=== PATIENT | female | born 1990 | race Hispanic/Latino ===

== ENCOUNTER 2019-07-31 15:33 | Emergency (ER) | payer OTHER, SELFPAY ==
[2019-07-31 16:49] LABS: Urine Blood 3+ (NEG); Urine Glucose NEGATIVE (NEG); Urine Protein NEGATIVE (NEG)
[2019-07-31 16:59] LABS: Urine Bacteria 20-50 /HPF (<20); Urine RBC 20-50 /HPF (NONE SEEN)
[2019-07-31 17:00] LABS: Urine Culture Reflex Order NOT NEEDED
--- NOTE | 2019-07-31 17:05 | RAD REPORT ---
EXAM DESCRIPTION: CT - Stone Protocol - 07/31/2019 4:57 pm CLINICAL HISTORY: Back pain, dysuria COMPARISON: None. TECHNIQUE: Axial 5 mm thick images were obtained without oral or IV contrast. The [id number] span s the entirety of the system including uppermost abdomen and lung bases. All CT scans are performed using dose optimization technique as appropriate and may include automated exposure control or mA/KV adjustment according to patient size. FINDINGS: No hydronephrosis is present and no obstructing ureteral calculi. No suspicious renal mass es. Isodense masses and pyelonephritis are not excluded on a stone protocol CT scan. No urinary bladd er suspicious finding. No significant adrenal finding. Uterus and ovaries show no suspicious findings . Imaged portions of the liver, spleen and pancreas show no suspicious findings on non-contrast imaging . No gallbladder or biliary tree abnormality identified. No suspicious bowel findings. No appendicitis findings. No hernia, mass or bulky lymphadenopathy noted. No free air, free fluid or inflammatory stranding. No significant bony abnormality. IMPRESSION: Negative CT stone protocol study. Isodense masses and pyelonephritis are not excluded on stone protocol technique.
[2019-07-31] MEDS ORDERED: PHENAZOPYRIDINE 100MG TAB PO ONE (17:06)
[2019-07-31] MEDS ORDERED: PROMETHAZINE 25 MG TABLET ONE (17:07)
[2019-07-31] MEDS ORDERED: HYDROCODONE/APAP 5/325 MG TAB ONE (17:07)
--- NOTE | 2019-07-31 17:30 | ER ---
Nurse's Notes [facility] Name: Tamar Arzola Age: 29 yrs Sex: Female : 1990 Arrival Date: 07/31/2019 Time: 15:37 Bed 13 Private MD: Diagnosis: Urinary tract infection, site not specified Presentation: 07/31 16:03 Presenting complaint: Patient states: "Im having pain when I pee and I can barely pee aj1 when I do go and I have to go a lot, and I'm having back pain, and now I'm feeling dizzy". Transition of care: patient was not received from another setting of care. Onset of symptoms. Onset of symptoms was July 28, 2019. Risk Assessment: Do you want to hurt yourself or someone else? Patient reports no desire to harm self or others. Initial Sepsis Screen: Does the patient meet any 2 criteria? No. Patient's initial sepsis screen is negative. Does the patient have a suspected source of infection? No. Patient's initial sepsis screen is negative. Care prior to arrival: None. 16:03 Method Of Arrival: Ambulatory aj 16:03 Acuity: JANAY 4 aj1 Triage Assessment: 16:05 General: Appears in no apparent distress. comfortable, Behavior is calm, cooperative, aj1 appropriate for age. Pain: Pain currently is 8 out of 10 on a pain scale. Neuro: Level of Consciousness is awake, alert, obeys commands. Cardiovascular: Patient's skin is warm and dry. Respiratory: Airway is patent Respiratory effort is even, unlabored, Respiratory pattern is regular, symmetrical. : Reports burning with urination, urgency, urinary frequency. Musculoskeletal: Range of motion: intact in all extremities. 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 - Social history:: Smoking status: Patient uses tobacco products, smokes one-half pack cigarettes per day. - Ebola Screening: : Patient denies travel to an Ebola-affected area in the 21 days before illness onset. Screenin:26 Abuse screen: Denies threats or abuse. Nutritional screening: No deficits noted. ph Tuberculosis screening: No symptoms or risk factors identified. Fall Risk None identified. Assessment: 17:18 General: Appears in no apparent distress. comfortable, well groomed, Behavior is calm, ph cooperative, Smells of Reports Denies . Pain: Complains of pain in bilateral flank pain Pain began 2-3 days ago. Neuro: No deficits noted. Neuro: Level of Consciousness is awake, alert, Oriented to person, place, time, situation, Speech is normal. Cardiovascular: Capillary refill < 3 seconds. Respiratory: Airway is patent. GI: Abdomen is flat. : Reports pain in bilateral flank(s), lower quadrant(s). : Reports burning with urination, pain. Derm: Skin is intact, is healthy with good turgor, Skin is pink, warm \\T\\ dry. Musculoskeletal: Range of motion: intact in all extremities. Vital Signs: 16:05 BP 145 / 98; Pulse 81; Resp 18; Temp 97.9; Pulse Ox 100% on R/A; Weight 58.97 kg (R); aj1 Height 5 ft. 2 in. (157.48 cm) (R); 18:06 BP 102 / 76; Pulse 68; Resp 18; Temp 98; Pulse Ox 100% on R/A; ph 16:05 Body Mass Index 23.78 (58.97 kg, 157.48 cm) aj ED Course: 15:37 Patient arrived in ED. mr 15:58 Lilia Gomez, [facility]DR[facility]. snw 15:58 Jonathon Gilmore MD is Attending Physician. snw 16:04 Triage completed. aj1 16:05 Arm band placed on Patient placed in an exam room. aj1 16:22 Jane Adkins, RN is Primary Nurse. ph 16:57 CT Stone Protocol In Process Unspecified. EDMS 17:26 Patient has correct armband on for positive identification. Bed in low position. Call ph light in reach. Side rails up X 1. Pulse ox on. NIBP on. Pillow given. 18:05 No provider procedures requiring assistance completed. Patient did not have IV access ph during this emergency room visit. Administered Medications: 17:18 Drug: [place] 5 mg-325 mg 1 tabs Route: PO; ph 18:11 Follow up: Response: No adverse reaction; RASS: Alert and Calm (0) ph 17:18 Drug: Phenergan 25 mg Route: PO; ph 18:11 Follow up: Response: No adverse reaction ph 17:18 Drug: Pyridium 100 mg Route: PO; ph 18:11 Follow up: Response: No adverse reaction ph 18:04 Drug: Augmentin 875 mg Route: PO; ph 18:12 Follow up: Response: No adverse reaction ph Outcome: 17:30 Discharge ordered by MD. gold 18:05 Discharged to home ambulatory, with significant other. ph 18:05 Condition: good 18:05 Discharge instructions given to patient, Instructed on discharge instructions, follow up and referral plans. medication usage, Demonstrated understanding of instructions, follow-up care, medications, Prescriptions given X 2. 18:12 Patient left the ED. ph Addendum: 08/03/2019 11:11 Addendum: Culture Results: Positive urine culture. Bacteria is resistant to, has a a5 intermediate sensitivity, or is not tested against prescribed antibiotics. Report given to JEFERSON for further evaluation and then to narcotics investigator for follow up with patient. Phone call Attempt #1 left voicemail. 11:59 Addendum: Culture Results: Prescription called-in to pharmacy of choice. to [place] [address] [facility] [place], [place], Bactrim DS called in per KILO Childress, pt also instructed to continue Augmentin per KILO. Signatures: Dispatcher [employer] EDMS Maeve Ch RN RN aj1 Lilia Gomez, [employer] CONCRETE PLANT LABORER-Lizet Hu Mariella Pinzon RN RN aa5 Jane Adkins RN RN ph
--- NOTE | 2019-07-31 17:31 | EDPHYS ---
Physician Documentation [facility] Name: Tamar Arzola Age: 29 yrs Sex: Female : 1990 Arrival Date: 07/31/2019 Time: 15:37 Bed 13 Private MD: ED Physician Jonathon Gilmore HPI: 07/31 16:17 This 29 yrs old Female presents to ER via Ambulatory with complaints of Back snw Pain, Abdominal Pain. 16:17 The patient presents with pain that is acute. The symptoms are located in the right mid snw back. Onset: The symptoms/episode began/occurred gradually. The pain does not radiate. Associated signs and symptoms: Pertinent positives: dysuria. The problem was sustained from unknown cause. Modifying factors: The patient symptoms are alleviated by nothing, the patient symptoms are aggravated by urination. Severity of symptoms: At their worst the symptoms were moderate. The patient has not experienced similar symptoms in the past. It is unknown whether or not the patient has recently seen a physician. 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 - Social history:: Smoking status: Patient uses tobacco products, smokes one-half pack cigarettes per day. - Ebola Screening: : Patient denies travel to an Ebola-affected area in the 21 days before illness onset. ROS: 16:16 Constitutional: Negative for fever, chills, and weight loss, Eyes: Negative for injury, snw pain, redness, and discharge, ENT: Negative for injury, pain, and discharge, Neck: Negative for injury, pain, and swelling, Cardiovascular: Negative for chest pain, palpitations, and edema, Respiratory: Negative for shortness of breath, cough, wheezing, and pleuritic chest pain, Abdomen/GI: Negative for abdominal pain, nausea, vomiting, diarrhea, and constipation, : Negative for injury, bleeding, discharge, and swelling, MS/Extremity: Negative for injury and deformity, Skin: Negative for injury, rash, and discoloration, Neuro: Negative for headache, weakness, numbness, tingling, and seizure, Psych: Negative for depression, anxiety, suicide ideation, homicidal ideation, and hallucinations. 16:16 Back: Positive for flank pain, on the right. Exam: 16:16 Head/Face: Normocephalic, atraumatic. Eyes: Pupils equal round and reactive to light, snw extra-ocular motions intact. Lids and lashes normal. Conjunctiva and sclera are non-icteric and not injected. Cornea within normal limits. Periorbital areas with no swelling, redness, or edema. ENT: Nares patent. No nasal discharge, no septal abnormalities noted. Tympanic membranes are normal and external auditory canals are clear. Oropharynx with no redness, swelling, or masses, exudates, or evidence of obstruction, uvula midline. Mucous membranes moist. Neck: Trachea midline, no thyromegaly or masses palpated, and no cervical lymphadenopathy. Supple, full range of motion without nuchal rigidity, or vertebral point tenderness. No Meningismus. Chest/axilla: Normal chest wall appearance and motion. Nontender with no deformity. No lesions are appreciated. Cardiovascular: Regular rate and rhythm with a normal S1 and S2. No gallops, murmurs, or rubs. Normal PMI, no JVD. No pulse deficits. Respiratory: Lungs have equal breath sounds bilaterally, clear to auscultation and percussion. No rales, rhonchi or wheezes noted. No increased work of breathing, no retractions or nasal flaring. Abdomen/GI: Soft, non-tender, with normal bowel sounds. No distension or tympany. No guarding or rebound. No evidence of tenderness throughout. Back: No spinal tenderness. Mild right costovertebral tenderness. Full range of motion. Skin: Warm, dry with normal turgor. Normal color with no rashes, no lesions, and no evidence of cellulitis. MS/ Extremity: Pulses equal, no cyanosis. Neurovascular intact. Full, normal range of motion. Neuro: Awake and alert, GCS 15, oriented to person, place, time, and situation. Cranial nerves II-XII grossly intact. Motor strength 5/5 in all extremities. Sensory grossly intact. Cerebellar exam normal. Normal gait. Psych: Awake, alert, with orientation to person, place and time. Behavior, mood, and affect are within normal limits. 16:16 Constitutional: The patient appears alert, awake, uncomfortable. Vital Signs: 16:05 BP 145 / 98; Pulse 81; Resp 18; Temp 97.9; Pulse Ox 100% on R/A; Weight 58.97 kg (R); aj1 Height 5 ft. 2 in. (157.48 cm) (R); 18:06 BP 102 / 76; Pulse 68; Resp 18; Temp 98; Pulse Ox 100% on R/A; ph 16:05 Body Mass Index 23.78 (58.97 kg, 157.48 cm) aj1 MDM: 16:08 Patient medically screened. snw 17:33 Data reviewed: vital signs, nurses notes. Data interpreted: Pulse oximetry: on room air snw is 100 %. Interpretation: normal. Counseling: I had a detailed discussion with the patient and/or guardian regarding: the historical points, exam findings, and any diagnostic results supporting the discharge/admit diagnosis, the presence of at least one elevated blood pressure reading (>120/80) during this emergency department visit, lab results, radiology results, the need for outpatient follow up, to return to the emergency department if symptoms worsen or persist or if there are any questions or concerns that arise at home. Special discussion: Based on the patient's Hx, exam, and Dx evaluation, there is no indication for emergent surgery or inpatient Tx. It is understood by the patient/guardian that if the Sx's persist or worsen they need to return immediately for re-evaluation. I have referred the patient to see his PCP for further evaluation of high blood pressure. Based on the history and exam findings, there is no indication for further emergent testing or inpatient evaluation. I discussed with the patient/guardian the need to see the OB Gyne specialist for further evaluation of the symptoms. I discussed with the patient/guardian the need to see the primary care provider for further evaluation of the symptoms. 07/31 15:58 Order name: Urine Culture snw 07/31 15:58 Order name: Urine Microscopic Only; Complete Time: 17:01 snw 07/31 16:38 Order name: CT Stone Protocol; Complete Time: 17:11 snw 07/31 16:45 Order name: Urine Dipstick--Ancillary (enter results); Complete Time: 16:52 bd 07/31 16:45 Order name: Urine --Ancillary (enter results); Complete Time: 16:52 bd 07/31 15:58 Order name: Urine Test (obtain specimen); Complete Time: 16:50 snw 07/31 15:58 Order name: Urine Dipstick-Ancillary (obtain specimen); Complete Time: 16:50 snw Administered Medications: 17:18 Drug: [place] 5 mg-325 mg 1 tabs Route: PO; ph 18:11 Follow up: Response: No adverse reaction; RASS: Alert and Calm (0) ph 17:18 Drug: Phenergan 25 mg Route: PO; ph 18:11 Follow up: Response: No adverse reaction ph 17:18 Drug: Pyridium 100 mg Route: PO; ph 18:11 Follow up: Response: No adverse reaction ph 18:04 Drug: Augmentin 875 mg Route: PO; ph 18:12 Follow up: Response: No adverse reaction ph Disposition: 08/01 07:20 Co-signature as Attending Physician, Jonathon Gilmore MD I agree with the assessment and cesar plan of care. Disposition: 07/31/19 17:30 Discharged to Home. Impression: Urinary tract infection, site not specified. - Condition is Stable. - Discharge Instructions: Back Pain, Adult, Hypertension, Urinary Tract Infection, Adult, How to Take Your Blood Pressure, [id number], Rehydration, Adult, Form - Blood Pressure Record Sheet. - Prescriptions for Augmentin 875- 125 mg Oral Tablet - take 1 tablet by ORAL route every 12 hours for 10 days; 20 tablet. Pyridium 200 mg Oral Tablet - take 1 tablet by ORAL route every 8 hours for 3 days; 9 tablet. - Medication Reconciliation Form, Thank You Letter, Antibiotic Education, Prescription Opioid Use, Work release form form. - Follow up: Private Physician; When: 2 - 3 days; Reason: Recheck today's complaints, Continuance of care, Re-evaluation by your physician. Follow up: Emergency Department; When: As needed; Reason: Worsening of condition. Signatures: Dispatcher [employer] Maeve Burns RN RN Jonathon Turk MD MD cha Therrien, Shelly, LOFT WORKER-C LOFT WORKER-Katiw Jane Adkins RN RN ph Corrections: (The following items were deleted from the chart) 07/31 18:12 17:30 07/31/2019 17:30 Discharged to Home. Impression: Urinary tract infection, site ph not specified. Condition is Stable. Forms are Medication Reconciliation Form, Thank You Letter, Antibiotic Education, Prescription Opioid Use. Follow up: Private Physician; When: 2 - 3 days; Reason: Recheck today's complaints, Continuance of care, Re-evaluation by your physician. Follow up: Emergency Department; When: As needed; Reason: Worsening of condition. snw
[2019-07-31] MEDS ORDERED: AMOX/K CLAV 875 MG TAB ONE (17:52)
[2019-07-31 18:19] VITALS: O2SAT 100
[2019-07-31 18:20] VITALS: BP 102/76; TEMP 98
== END 2019-07-31 18:12 | disposition home or self-care (01) ==
LOC: ER 15:33
DX: N39.0 Urinary tract infection, site not specified (principal); F17.210 Nicotine dependence, cigarettes, uncomplicated
CPT/HCPCS: 74176; 76377; 81003; 81015; 81025; 87077; 87086; 87088; 87186; 99284; Q0169

== ENCOUNTER 2020-03-22 06:16 | Emergency (ER) | payer SELFPAY ==
--- NOTE | 2020-03-22 06:50 | ER ---
Nurse's Notes [facility] Name: Tamar Arzola Age: 29 yrs Sex: Female : 1990 Arrival Date: 03/22/2020 Time: 06:19 Bed 11 Private MD: Diagnosis: Urticaria Presentation: 03/22 06:32 Chief complaint: Patient states: Noticed hives to general body about 0100, states lp1 taking Benadryl OTC an hour ago. Coronavirus screen: Proceed with normal triage. Ebola Screen: No symptoms or risks identified at this time. Initial Sepsis Screen: Does the patient meet any 2 criteria? No. Patient's initial sepsis screen is negative. Does the patient have a suspected source of infection? No. Patient's initial sepsis screen is negative. Risk Assessment: Do you want to hurt yourself or someone else? Patient reports no desire to harm self or others. Onset of symptoms was March 22, 2020. 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 - Social history:: Smoking status: Patient reports the use of cigarette tobacco products, smokes one-half pack cigarettes per day. Screenin:36 Abuse screen: Denies threats or abuse. Denies injuries from another. Nutritional lp1 screening: No deficits noted. Tuberculosis screening: No symptoms or risk factors identified. Fall Risk None identified. Assessment: 07:05 General: Appears in no apparent distress. Behavior is calm, cooperative, appropriate lp1 for age. Pain: Denies pain. Neuro: No deficits noted. Cardiovascular: No deficits noted. Respiratory: No deficits noted. GI: No signs and/or symptoms were reported involving the gastrointestinal system. : No signs and/or symptoms were reported regarding the genitourinary system. EENT: No signs and/or symptoms were reported regarding the EENT system. Derm: Rash noted that is raised, urticaria. Musculoskeletal: No deficits noted. Vital Signs: 06:32 BP 115 / 84; Pulse 74; Resp 18; Pulse Ox 100% on R/A; Weight 63.5 kg (R); Height 5 ft. lp1 2 in. (157.48 cm); 06:32 Body Mass Index 25.61 (63.50 kg, 157.48 cm) lp1 ED Course: 06:19 Patient arrived in ED. cl3 06:22 Jonathon Gilmore MD is Attending Physician. [facility] 06:35 Triage completed. lp1 06:35 Arm band placed on. lp1 06:37 Patient has correct armband on for positive identification. lp1 06:54 Norah Meneses, RN is Primary Nurse. lp1 07:06 No provider procedures requiring assistance completed. Patient did not have IV access lp1 during this emergency room visit. Administered Medications: 07:05 Drug: Benadryl 25 mg Route: PO; lp1 07:05 Follow up: Response: Medication administered at discharge. lp1 07:05 Drug: Pepcid 40 mg Route: PO; lp1 07:05 Follow up: Response: Medication administered at discharge. lp1 07:05 Drug: predniSONE 40 mg Route: PO; lp1 07:05 Follow up: Response: Medication administered at discharge. lp1 Outcome: 06:49 Discharge ordered by . [facility] 07:06 Discharged to home ambulatory, with significant other. lp1 07:06 Condition: good 07:06 Discharge instructions given to patient, Instructed on discharge instructions, follow up and referral plans. medication usage, Demonstrated understanding of instructions, follow-up care, medications, Prescriptions given X 3. 07:07 Patient left the ED. lp1 Signatures: Jonathon Gilmore MD MD cha Pena, Laura, RN RN lp1 Jose Cruz Lee cl3
--- NOTE | 2020-03-22 06:50 | EDPHYS ---
Physician Documentation [facility] Name: Tamar Arzola Age: 29 yrs Sex: Female : 1990 Arrival Date: 03/22/2020 Time: 06:19 Bed 11 Private MD: ED Physician Jonathon Gilmore HPI: 03/22 06:44 This 29 yrs old Female presents to ER via Ambulatory with complaints of Welps cesar On Body. 06:44 The patient presents with rash, that is diffuse. Onset: The symptoms/episode cesar began/occurred last night. Associated signs and symptoms: The patient has no apparent associated signs or symptoms. Possible causes: The patient has no known obvious cause for the symptoms, cleaning supplies. At home the patient or guardian has treated the symptoms with Benadryl. Severity of symptoms: At their worst the symptoms were mild in the emergency department the symptoms are unchanged. The patient has not experienced similar symptoms in the past. 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 - Social history:: Smoking status: Patient reports the use of cigarette tobacco products, smokes one-half pack cigarettes per day. ROS: 06:46 Constitutional: Negative for fever, chills, and weight loss, Eyes: Negative for injury, cesar pain, redness, and discharge, ENT: Negative for injury, pain, and discharge, Neck: Negative for injury, pain, and swelling, Cardiovascular: Negative for chest pain, palpitations, and edema, Respiratory: Negative for shortness of breath, cough, wheezing, and pleuritic chest pain, Abdomen/GI: Negative for abdominal pain, nausea, vomiting, diarrhea, and constipation, Back: Negative for injury and pain, : Negative for injury, bleeding, discharge, and swelling, MS/Extremity: Negative for injury and deformity, Neuro: Negative for headache, weakness, numbness, tingling, and seizure, Psych: Negative for depression, anxiety, suicide ideation, homicidal ideation, and hallucinations, Allergy/Immunology: Negative for hives, rash, and allergies, Endocrine: Negative for neck swelling, polydipsia, polyuria, polyphagia, and marked weight changes, Hematologic/Lymphatic: Negative for swollen nodes, abnormal bleeding, and unusual bruising. 06:46 Skin: Positive for rash, of the back, buttocks, chest and abdomen. Exam: 06:46 Constitutional: This is a well developed, well nourished patient who is awake, alert, cesar and in no acute distress. Head/Face: Normocephalic, atraumatic. Eyes: Pupils equal round and reactive to light, extra-ocular motions intact. Lids and lashes normal. Conjunctiva and sclera are non-icteric and not injected. Cornea within normal limits. Periorbital areas with no swelling, redness, or edema. ENT: Nares patent. No nasal discharge, no septal abnormalities noted. Tympanic membranes are normal and external auditory canals are clear. Oropharynx with no redness, swelling, or masses, exudates, or evidence of obstruction, uvula midline. Mucous membranes moist. Neck: Trachea midline, no thyromegaly or masses palpated, and no cervical lymphadenopathy. Supple, full range of motion without nuchal rigidity, or vertebral point tenderness. No Meningismus. Chest/axilla: Normal chest wall appearance and motion. Nontender with no deformity. No lesions are appreciated. Cardiovascular: Regular rate and rhythm with a normal S1 and S2. No gallops, murmurs, or rubs. Normal PMI, no JVD. No pulse deficits. Respiratory: Lungs have equal breath sounds bilaterally, clear to auscultation and percussion. No rales, rhonchi or wheezes noted. No increased work of breathing, no retractions or nasal flaring. Abdomen/GI: Soft, non-tender, with normal bowel sounds. No distension or tympany. No guarding or rebound. No evidence of tenderness throughout. Back: No spinal tenderness. No costovertebral tenderness. Full range of motion. MS/ Extremity: Pulses equal, no cyanosis. Neurovascular intact. Full, normal range of motion. Neuro: Awake and alert, GCS 15, oriented to person, place, time, and situation. Cranial nerves II-XII grossly intact. Motor strength 5/5 in all extremities. Sensory grossly intact. Cerebellar exam normal. Normal gait. Psych: Awake, alert, with orientation to person, place and time. Behavior, mood, and affect are within normal limits. 06:46 Skin: urticaria. Vital Signs: 06:32 BP 115 / 84; Pulse 74; Resp 18; Pulse Ox 100% on R/A; Weight 63.5 kg (R); Height 5 ft. lp1 2 in. (157.48 cm); 06:32 Body Mass Index 25.61 (63.50 kg, 157.48 cm) lp1 MDM: 06:32 Patient medically screened. [facility] 06:47 Data reviewed: vital signs, nurses notes. [facility] 06:47 Differential diagnosis: angioedema, urticaria. Data interpreted: quality assurance monitor: not cesar applicable for this patient encounter. rate is 74 beats/min, Pulse oximetry: on room air is 100 %. Counseling: I had a detailed discussion with the patient and/or guardian regarding: the historical points, exam findings, and any diagnostic results supporting the discharge/admit diagnosis. Administered Medications: 07:05 Drug: Benadryl 25 mg Route: PO; lp1 07:05 Follow up: Response: Medication administered at discharge. lp1 07:05 Drug: Pepcid 40 mg Route: PO; lp1 07:05 Follow up: Response: Medication administered at discharge. lp1 07:05 Drug: predniSONE 40 mg Route: PO; lp1 07:05 Follow up: Response: Medication administered at discharge. lp1 Disposition: 03/22/20 06:49 Discharged to Home. Impression: Urticaria. - Condition is Stable. - Discharge Instructions: Allergies, Adult, Hives, Hives, [id number]. - Prescriptions for Benadryl 25 mg Oral Capsule - take 1 capsule by ORAL route every 6 hours As needed; 30 tablet. Pepcid 20 mg Oral Tablet - take 1 tablet by ORAL route every 12 hours for 10 days; 20 tablet. Prednisone 20 mg Oral Tablet - take 2 tablet by ORAL route once daily for 5 days; 10 tablet. - Medication Reconciliation Form, Thank You Letter, Antibiotic Education, Prescription Opioid Use, Family Work Release form. - Follow up: Private Physician; When: 2 - 3 days; Reason: Recheck today's complaints, Continuance of care, Re-evaluation by your physician. - Problem is new. - Symptoms have improved. Signatures: Jonathon Gilmore MD MD cha Pena, Laura RN RN lp1 Corrections: (The following items were deleted from the chart) 07:07 06:49 03/22/2020 06:49 Discharged to Home. Impression: Urticaria. Condition is Stable. lp1 Forms are Medication Reconciliation Form, Thank You Letter, Antibiotic Education, Prescription Opioid Use. Follow up: Private Physician; When: 2 - 3 days; Reason: Recheck today's complaints, Continuance of care, Re-evaluation by your physician. Problem is new. Symptoms have improved. cesar
[2020-03-22] MEDS ORDERED: predniSONE 20 MG TAB ONE (07:07)
[2020-03-22] MEDS ORDERED: DIPHENHYDRAMINE 25 MG TAB/CAP ONE (07:07)
[2020-03-22 07:29] VITALS: BP 115/84; O2SAT 100
== END 2020-03-22 07:07 | disposition home or self-care (01) ==
LOC: ER 06:16
DX: L50.9 Urticaria, unspecified (principal); F17.210 Nicotine dependence, cigarettes, uncomplicated
CPT/HCPCS: 99283; J7512

== ENCOUNTER 2020-07-08 17:33 | Emergency (ER) | payer SELFPAY ==
[2020-07-08 18:49] LABS: Absolute Lymphocytes (CBC) 1.6 K/uL (0.7-4.9); Basophils % 0.6 % (0-1.3); Hematocrit 37.5 % (36.0-45.0); Lymphocytes % 28.6 % (15.3-44.8); MPV 9.1 fL (7.6-11.3); RBC Red Blood Cell Count 4.38 M/uL (3.86-4.86)
--- NOTE | 2020-07-08 18:53 | RAD REPORT ---
EXAM DESCRIPTION: RAD - Chest Single View - 07/08/2020 6:21 pm CLINICAL HISTORY: CHEST PAIN Chest pain. COMPARISON: CHEST SINGLE VIEW dated 11/29/2012 FINDINGS: Portable technique limits examination quality. The lungs are grossly clear. The heart is normal in size. No displaced fractures. IMPRESSION: No acute intrathoracic process suspected.
[2020-07-08 19:14] LABS: AST/SGOT 90 U/L (15-37); Albumin 4.1 g/dL (3.4-5.0); Alkaline Phosphatase 68 U/L (45-117); BUN Blood Urea Nitrogen 11 mg/dL (7-18); Bicarbonate 26 mmol/L (21-32); Bilirubin Direct < 0.1 mg/dL (0-0.2); Bilirubin Total 0.1 mg/dL (0.2-1.0); Glucose Level 85 mg/dL (74-106); Magnesium 2.3 mg/dL (1.8-2.4); NT PRO-BNP 17 pg/mL (<125); Potassium 3.7 mmol/L (3.5-5.1); Protein, Total 8.3 g/dL (6.4-8.2); Sodium Level 139 mmol/L (136-145); Troponin (Emerg Dept Use Only) < 0.02 ng/mL (0.0-0.045)
[2020-07-08 19:16] LABS: ALT/SGPT 300 U/L (12-78)
[2020-07-08 19:17] LABS: Protime INR 0.97
--- NOTE | 2020-07-08 20:01 | ER ---
Nurse's Notes [facility] Name: Tamar Arzola Age: 30 yrs Sex: Female : 1990 Arrival Date: 07/08/2020 Time: 17:35 Bed 24 Private MD: Diagnosis: Chest pain, unspecified;Dyspnea Presentation: 07/08 17:57 Chief complaint: Patient states: I have been having sharp pains in my lungs all over, ca1 on and off for the past 2 months. But for the past week, it has gotten worse and I have been having chest pains to around the same time. SOB with CP. Denies cough, denies fever. Denies injury. Coronavirus screen: Client denies travel out of the [place] in the last 14 days. shortness of breath, Client presents with at least one sign or symptom that may indicate coronavirus-19. Standard/surgical mask placed on the client. Provider contacted for isolation considerations. The client denies any previous COVID testing. Ebola Screen: Patient negative for fever greater than or equal to 101.5 degrees Fahrenheit, and additional compatible Ebola Virus Disease symptoms Patient denies exposure to infectious person. Patient denies travel to an Ebola-affected area in the 21 days before illness onset. No symptoms or risks identified at this time. Initial Sepsis Screen: Does the patient meet any 2 criteria? No. Patient's initial sepsis screen is negative. Does the patient have a suspected source of infection? No. Patient's initial sepsis screen is negative. Risk Assessment: Do you want to hurt yourself or someone else? Patient reports no desire to harm self or others. Onset of symptoms was July 08, 2020. 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 - Social history:: Smoking status: Patient/guardian denies using tobacco, but has a distant history of tobacco abuse. Screenin:38 Abuse screen: Denies threats or abuse. Nutritional screening: No deficits noted. jd3 Tuberculosis screening: No symptoms or risk factors identified. Fall Risk IV access (20 points). Ambulatory Aid- None/Bed Rest/Nurse Assist (0 pts). Gait- Normal/Bed Rest/Wheelchair (0 pts) Mental Status- Oriented to own ability (0 pts). Total Scherer Fall Scale indicates No Risk (0-24 pts). Assessment: 18:37 General: Appears in no apparent distress. uncomfortable, Behavior is calm, cooperative, jd3 appropriate for age. Pain: Complains of pain in chest Pain does not radiate. Quality of pain is described as aching, pressure, Pain began gradually. Neuro: Level of Consciousness is awake, alert, obeys commands, Oriented to person, place, time, situation. Cardiovascular: Reports chest pain, Capillary refill < 3 seconds Patient's skin is warm and dry. Rhythm is regular. Respiratory: Reports shortness of breath at rest Airway is patent Respiratory effort is even, unlabored, Respiratory pattern is regular, symmetrical. GI: No signs and/or symptoms were reported involving the gastrointestinal system. Patient currently denies abdominal pain, diarrhea, nausea, vomiting. : No signs and/or symptoms were reported regarding the genitourinary system. EENT: No signs and/or symptoms were reported regarding the EENT system. Derm: Skin is intact, Skin is dry, Skin is normal, Skin temperature is warm. Musculoskeletal: Circulation, motion, and sensation intact. Range of motion: intact in all extremities. 19:03 Reassessment: Patient appears in no apparent distress at this time. No changes from jd3 previously documented assessment. Patient and/or family updated on plan of care and expected duration. Pain level reassessed. Patient is alert, oriented x 3, equal unlabored respirations, skin warm/dry/pink. 20:10 Reassessment: Patient appears in no apparent distress at this time. Patient and/or [facility] family updated on plan of care and expected duration. Pain level reassessed. Patient is alert, oriented x 3, equal unlabored respirations, skin warm/dry/pink. Vital Signs: 17:57 BP 108 / 84; Pulse 103; Resp 18 S; Temp 98.2(TE); Pulse Ox 100% on R/A; Weight 68.04 kg ca1 (R); Height 5 ft. 2 in. (157.48 cm) (R); Pain 8/10; 19:02 BP 99 / 63; Pulse 85; Resp 17 S; Pulse Ox 100% on R/A; jd3 20:10 BP 103 / 68; Pulse 75; Resp 17 S; Pulse Ox 98% on R/A; jd3 17:57 Body Mass Index 27.44 (68.04 kg, 157.48 cm) ca1 ED Course: 17:35 Patient arrived in ED. as 17:39 Tess March [facility]C [facility] kb 17:39 Jonathon Gilmore MD is Attending Physician. kb 17:59 Triage completed. ca1 18:00 Arm band placed on right wrist. ca1 18:03 Luis Rodríguez, KADY is Primary Nurse. jd3 18:22 XRAY Chest (1 view) In Process Unspecified. EDMS 18:37 Inserted saline lock: 20 gauge in left antecubital area, using aseptic technique. Blood jd3 collected. Patient maintains SpO2 saturation greater than 95% on room air. 18:39 Patient has correct armband on for positive identification. Placed in gown. Bed in low jd3 position. Call light in reach. Side rails up X 1. Adult w/ patient. director digital sales on. Pulse ox on. NIBP on. 19:52 No provider procedures requiring assistance completed. jd3 20:11 IV discontinued, intact, bleeding controlled, No redness/swelling at site. Pressure jd3 dressing applied. Administered Medications: No medications were administered Outcome: 20:00 Discharge ordered by . kb 20:11 Discharged to home ambulatory, with family. jd3 20:11 Condition: stable 20:11 Discharge instructions given to patient, family, Instructed on discharge instructions, follow up and referral plans. Demonstrated understanding of instructions, follow-up care. 20:12 Patient left the ED. jd3 Signatures: Dispatcher [employer] EDCO Tess March FNP-C FNP-Fawn Funes as Luis Rodríguez, KADY RN jJayashree Childress RN RN ca1 Corrections: (The following items were deleted from the chart) 19:53 19:52 Patient admitted, IV remains in place. jd3 jd3 19:53 19:52 Reassessment: Patient appears in no apparent distress at this time. Patient jd3 and/or family updated on plan of care and expected duration. Pain level reassessed. Patient is alert, oriented x 3, equal unlabored respirations, skin warm/dry/pink. report given to Karishma HILLMAN nurse for room 218 jd3
--- NOTE | 2020-07-08 20:01 | EDPHYS ---
Physician Documentation [facility] Name: Tamar Arzola Age: 30 yrs Sex: Female : 1990 Arrival Date: 07/08/2020 Time: 17:35 Bed 24 Private MD: ED Physician Jonathon Gilmore HPI: 07/08 18:27 This 30 yrs old Female presents to ER via Ambulatory with complaints of Chest kb Pain, Shortness Of Breath. 18:27 The patient or guardian reports chest pain that is located primarily in the chest kb diffusely. The pain does not radiate. Associated signs and symptoms: Pertinent positives: shortness of breath, Pertinent negatives: abdominal pain, cough, diaphoresis, dizziness, headache, lower extremity pain, lower extremity swelling, lightheadedness, nausea, near syncope, palpitations, recent travel, syncope, vomiting. The chest pain is described as stabbing. Duration: The patient or guardian reports multiple episodes, that are intermittent, with no pattern. Modifying factors: The symptoms are alleviated by nothing. the symptoms are aggravated by nothing. Severity of pain: At its worst the pain was moderate in the emergency department the pain has improved. The patient has not experienced similar symptoms in the past. The patient has not recently seen a physician. Pt reports chest pains that started 2 months ago and have been traveling around her chest. States this week the pain has been worse and she has been having shortness of breath. 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 - Social history:: Smoking status: Patient/guardian denies using tobacco, but has a distant history of tobacco abuse. ROS: 18:24 Constitutional: Negative for fever, chills, and weight loss, Abdomen/GI: Negative for kb abdominal pain, nausea, vomiting, diarrhea, and constipation, Back: Negative for injury and pain, MS/Extremity: Negative for injury and deformity, Skin: Negative for injury, rash, and discoloration, Neuro: Negative for headache, weakness, numbness, tingling, and seizure. 18:24 Cardiovascular: Positive for chest pain, Negative for edema, orthopnea, palpitations, paroxysmal nocturnal dyspnea. 18:24 Respiratory: Positive for shortness of breath, Negative for cough, dyspnea on exertion, hemoptysis, orthopnea, pleurisy, sputum production, wheezing. Exam: 18:24 Constitutional: This is a well developed, well nourished patient who is awake, alert, kb and in no acute distress. Head/Face: Normocephalic, atraumatic. Chest/axilla: Normal chest wall appearance and motion. Nontender with no deformity. No lesions are appreciated. Cardiovascular: Regular rate and rhythm with a normal S1 and S2. No gallops, murmurs, or rubs. Normal PMI, no JVD. No pulse deficits. Respiratory: Lungs have equal breath sounds bilaterally, clear to auscultation and percussion. No rales, rhonchi or wheezes noted. No increased work of breathing, no retractions or nasal flaring. Abdomen/GI: Soft, non-tender, with normal bowel sounds. No distension or tympany. No guarding or rebound. No evidence of tenderness throughout. Skin: Warm, dry with normal turgor. Normal color with no rashes, no lesions, and no evidence of cellulitis. MS/ Extremity: Pulses equal, no cyanosis. Neurovascular intact. Full, normal range of motion. Neuro: Awake and alert, GCS 15, oriented to person, place, time, and situation. Cranial nerves II-XII grossly intact. Motor strength 5/5 in all extremities. Sensory grossly intact. Cerebellar exam normal. Normal gait. 18:24 ECG was reviewed by the Attending Physician. Vital Signs: 17:57 BP 108 / 84; Pulse 103; Resp 18 S; Temp 98.2(TE); Pulse Ox 100% on R/A; Weight 68.04 kg ca1 (R); Height 5 ft. 2 in. (157.48 cm) (R); Pain 8/10; 19:02 BP 99 / 63; Pulse 85; Resp 17 S; Pulse Ox 100% on R/A; jd3 20:10 BP 103 / 68; Pulse 75; Resp 17 S; Pulse Ox 98% on R/A; jd3 17:57 Body Mass Index 27.44 (68.04 kg, 157.48 cm) ca1 MDM: 18:02 Patient medically screened. kb 18:25 Data reviewed: vital signs, nurses notes. Data interpreted: Pulse oximetry: on room air kb is 100 %. Interpretation: normal. 19:43 Counseling: I had a detailed discussion with the patient and/or guardian regarding: the kb historical points, exam findings, and any diagnostic results supporting the discharge/admit diagnosis, lab results, radiology results, the need for outpatient follow up, a family practitioner, to return to the emergency department if symptoms worsen or persist or if there are any questions or concerns that arise at home. 19:47 ED course: Pt now reports urinary frequency and intermittent low back pain. Will obtain kb urine for testing. 07/08 18:03 Order name: Basic Metabolic Panel; Complete Time: 19:19 kb 07/08 18:03 Order name: CBC with Diff; Complete Time: 19:05 kb 07/08 18:03 Order name: LFT's; Complete Time: 19:19 kb 07/08 18:03 Order name: Magnesium; Complete Time: 19:19 kb 07/08 18:03 Order name: NT PRO-BNP; Complete Time: 19:19 kb 07/08 18:03 Order name: PT-INR; Complete Time: 19:38 kb 07/08 18:03 Order name: Troponin (emerg Dept Use Only); Complete Time: 19:19 kb 07/08 18:03 Order name: XRAY Chest (1 view); Complete Time: 18:54 kb 07/08 18:03 Order name: EKG; Complete Time: 18:04 kb 07/08 18:03 Order name: Cardiac monitoring; Complete Time: 18:40 kb 07/08 18:03 Order name: EKG - Nurse/Tech; Complete Time: 18:40 kb 07/08 18:03 Order name: D-Dimer; Complete Time: 19:38 kb 07/08 20:08 Order name: Urine Dipstick--Ancillary (enter results) ar5 07/08 20:08 Order name: Urine --Ancillary (enter results) ar5 07/08 18:03 Order name: IV Saline Lock; Complete Time: 18:40 kb 07/08 18:03 Order name: Labs collected and sent; Complete Time: 18:40 kb 07/08 18:03 Order name: O2 Per Protocol; Complete Time: 18:03 kb 07/08 18:03 Order name: O2 Sat Monitoring; Complete Time: 18:03 kb 07/08 19:47 Order name: Urine Dipstick-Ancillary (obtain specimen); Complete Time: 20:02 kb 07/08 19:47 Order name: Urine Test (obtain specimen); Complete Time: 20:02 kb EC:24 Rate is 81 beats/min. Rhythm is regular. QRS Haiku is Normal. HI interval is normal at kb 128 msec. QRS interval is normal at 108 msec. QT interval is normal at 358 msec. Administered Medications: No medications were administered Disposition: 07/09 07:36 Co-signature as Attending Physician, Jonathon Gilmore MD I agree with the assessment and cesar plan of care. Disposition: 07/08/20 20:00 Discharged to Home. Impression: Chest pain, unspecified, Dyspnea. - Condition is Stable. - Discharge Instructions: Shortness of Breath, [id number], Nonspecific Chest Pain, Dsce-[id number]. - Medication Reconciliation Form, Thank You Letter, Antibiotic Education, Prescription Opioid Use form. - Follow up: Emergency Department; When: As needed; Reason: Worsening of condition. Follow up: Private Physician; When: 2 - 3 days; Reason: Recheck today's complaints, Continuance of care, Re-evaluation by your physician. Signatures: Dispatcher [employer] Tess Ledezma, DELIVERY TECHNICIAN-C RUTHIE-Jonathon Gonzales MD MD cha Davies, Jonathon, RN RN jd3 Acob, Cheryl, RN RN ca1 Corrections: (The following items were deleted from the chart) 07/08 20:12 20:00 07/08/2020 20:00 Discharged to Home. Impression: Chest pain, unspecified; jd3 Dyspnea. Condition is Stable. Forms are Medication Reconciliation Form, Thank You Letter, Antibiotic Education, Prescription Opioid Use. Follow up: Emergency Department; When: As needed; Reason: Worsening of condition. Follow up: Private Physician; When: 2 - 3 days; Reason: Recheck today's complaints, Continuance of care, Re-evaluation by your physician. kb
[2020-07-08 21:02] VITALS: TEMP 98.2
[2020-07-08 21:08] VITALS: BP 103/68; O2SAT 98
[2020-07-08 21:21] LABS: Urine Blood NEGATIVE (NEG); Urine Glucose NEGATIVE (NEG); Urine Protein NEGATIVE (NEG); Urine Specific Gravity 1.025 (1.005-1.030); Urine pH 6.5 (5.0-7.0)
--- NOTE | 2020-07-10 07:17 | EKG ---
Test Date: 2020-07-08 Test Time: 18:22:14 Sample Card Maker: PATRIA MEASUREMENT RESULTS: Intervals: Rate: 81 MD: 128 QRSD: 108 QT: 358 QTc: 415 [place]: P: 55 MD: 128 QRS: 36 T: 39 INTERPRETIVE STATEMENTS: Normal sinus rhythm Incomplete right bundle branch block Borderline ECG Compared to ECG 02/28/2017 10:48:18 Incomplete right bundle-branch block now present Electronically Signed On 07-10-20 07:14:06 CDT by Sampson De Jesus
== END 2020-07-08 20:12 | disposition home or self-care (01) ==
LOC: ER 17:33
DX: R06.00 Dyspnea, unspecified (principal)
CPT/HCPCS: 36415; 71045; 80048; 80076; 81003; 81025; 83735; 83880; 84484; 85025; 85379; 85610; 93005; 99285

== ENCOUNTER 2023-03-04 21:03 | Emergency (ER) | payer SELFPAY ==
--- OUTSIDE RECORDS SUMMARY | 2023-03-04 21:06 | XMS REPORT | Continuity of Care Document ---
:1990 Author Organization Formerly [facility] t Address [address] [facility] [address] [place] [address] Care Team Providers Name Role Phone Pcp, Patient Does Not Have A Primary Care Physician [id number] Nannette Saab Attending Clinician G_Pappas Attending Clinician Unavailable G_Pappas Admitting Clinician Unavailable Payers Payer Name Policy Type Policy Number Effective Date Expiration Date [facility] [id number] CHOICE (MEDICAID REPLACEMENT - HMO) Problems Condition Condition Condition Status Onset Resolution Last Treating Co mments Source Name Details Category Date Date Treatment Clinician Date Disease Active Overview: Un jenny delivery delivery 7-15 Form[place] ity of delivered delivered 00:00: g of this [place] 00 note Medical might be Branch different from the original. 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) Allergies, Adverse Reactions, Alerts Allergy Allergy Status Severity Reaction(s) Onset Inactive Treating Comm ents Source Name Type Date Date Clinician NO KNOWN Drug Active Univers ALLERGIE Class [facility] [place] [facility] Social History Social Habit Start Date Stop Date Quantity Comments Source Exposure to Not sure [facility] SARS-CoV-2 (event) Medica l Branch Sex Assigned At [birth year] [facility] [place] 00:00:00 00:00:00 Medical Branch Smoking Status Start Date Stop Date Source Unknown if ever smoked [facility] Medications Ordered Filled Start Stop Current Ordering Indication Dosage Frequency Signature Comments Components Source Medication Medication Date Date Medication? Clinician (SIG) Name Name Yes 1{tbl} Take 1 Tab U nivers vitamin 7-16 by mouth ity of w/FA 00:00: daily. [place] ( 00 Medical RX OR Branch GENERIC EQUIVALENT) tablet docusate Yes 240mg Take 1 Cap Un jenny calcium 7-16 by mouth ity of (SURFAK) 00:00: once daily Andi as 240 mg 00 as needed Medical capsule for Branch Constipati on. ferrous Yes 325mg Take 1 Tab Uni vers sulfate 325 7-16 by mouth 2 it y of mg (65 mg 00:00: (two) [place] iron) 00 times Medical tablet daily. Branch norethindro Yes .35mg Take 1 Tab Univers ne 7-16 by mouth ity of (MICRONOR-2 00:00[place] 8) 0.35 mg 00 Medical tablet Branch hydrocodone Yes 1{tbl} Take 1-2 Univers -acetaminop 7-16 Tabs by ity o f hen (NORCO 00:00: mouth [place] 5) 5-325 mg 00 every 6 Medic al tablet (six) Branch hours as needed for Pain. Not to be administer ed at the same time as [place] 10 if ordered. For patients < 12 years recommend do not exceed 5 doses or 2.6 gm in 24 hours totals for all acetaminop hen containing products. For adults with normal hepatic function recommend do not exceed 4 grams in 24 hours for all acetaminop hen containing products. ibuprofen Yes 600mg Take 1 Tab U nivers (MOTRIN) 7-16 by mouth ity of 600 mg 00:00: every 6 [place] tablet 00 (six) Medical hours as Branch needed for Pain. Immunizations Ordered Filled Immunization Date Status Comments [facility] e Immunization Name Name MMR 2011-04-11 Completed [facility] 00:00:00 [facility] Vital Signs Vital Name Observation Time Observation Value Comments Source Systolic blood 2021-05-29 04:31:00 103 mm[Hg] Univer sity of pressure [facility] Diastolic blood 2021-05-29 04:31:00 79 mm[Hg] Unive rsity of [facility] Branch Heart rate 2021-05-29 04:31:00 63 /min [facility] Respiratory rate 2021-05-29 04:31:00 20 /min [facility] Oxygen saturation in 2021-05-29 04:31:00 100 /min [facility] Arterial blood by [facility] Pulse oximetry [place] Body temperature 2021-05-29 00:47:00 36.11 Cristy [facility] Body height 2021-05-29 00:47:00 157.5 cm [facility] Body weight 2021-05-29 00:47:00 65.772 kg [facility] BMI 2021-05-29 00:47:00 26.52 kg/m2 [facility] Procedures Procedure Date / Time Performed Performing Clinician Lilian e CT ABDOMEN PELVIS WO 2021-05-29 03:22:42 Nannette [facility] CONTRAST [facility] XR CHEST 1 VW 2021-05-29 03:22:06 Nannette Melchor Walker o f [facility] POCT TEST 2021-05-29 01:05:00 Jessica Gonsalez [facility] LIPASE 2021-05-29 01:03:00 Jessica Gonsalez [facility] COMP. METABOLIC PANEL 2021-05-29 01:03:00 Jessica Gonsalez [facility] ([id number]) [facility] CBC WITH DIFF 2021-05-29 01:03:00 Jessica Gonsalez [facility] URINALYSIS 2021-05-29 01:03:00 Jessica Gonsalez [facility] CONSENT/REFUSAL FOR 2021-05-29 00:39:49 [facility] AND Name [facility] TREATMENT NOTICE OF PRIVACY 2021-05-29 00:38:34 Doctor Unassigned, No Univ [facility] PRACTICES Name [facility] Encounters Start End Encounter Admission Attending Care Care Encounter Source Date/Time Date/Time Type Type Clinicians Facility Department ID 2021-05-28 2021-05-28 Emergency KENNETH Melchor [id number] [facility] 20:07:00 23:59:00 Nannette Frye [id number] i [facility] [id number] [facility] [id number] [place] [id number] Branch 2021-05-28 2021-05-28 Emergency X [facility] ERT [id number] Univers 19:41:00 19:41:00 ity of [facility] 2020-08-14 2020-08-14 Outpatient G_Pappas [facility] [id number] [place] 02:20:00 02:20:00 [facility] Results Test Description Test Time Test Comments Results Result Comments Source PAP TEST, THINPREP, IMAGED 2021-10-28 09:25:26 Test Item Value Reference Range Interpretation Comme nts SOURCE: (test code = Cervical/Endocervical 8001) SLIDES: (test code = 1 8011) LMP: (test code = 8021) 10/13/2021 SPECIMEN ADEQUACY: (test (NOTE) Sa leticia for code = 44098) evaluation. En docervical cells/transform ation zone component prese nt. INTERPRETATION: (test LSIL/EPITH. ABNORMALITY; SEE A code = 85464) BELOW --- EPITHELIAL CELL ABNORMALITY Low Grade Squamous Intrae pithelial Lesion (LSIL) --- PULP GRINDER FEEDER: (test CAPRICE Ronquillo(ASCP)IAC code = 8101) PATHOLOGIST Bear Byrd M.D. INTERPRETATION BY: (test code = 8122) LOCATION: (test code = (NOTE) [place] [address]) Clinical Pathol [place] [facility], [address] [facility] [place] [address], Phone: , CLIA: [id number] i nterpreted at [facility], [address] [address], , CLIA:[id number] CPT: (test code = 8140) (NOTE) 8817 5, 33047 UNLESS OTHERWISE INDIC ATED, COMPUTER AIDED AND CYTOTECHNOLOGIS T SCREENING PERFORMED. The Pap test is a screening consuelo t with an inherent, but l ow probability of error. Your patient should be reminded to consult you immediately if she experien zoltan any suspicious sign s or symptoms, regar dless of her Pap test re sult. An alternate repor t format containing imag es or consolidated pr ior Pap history is avai lable as applicable. CT/NG, NAAT, [id number] 18:11:52 Test Item Value Reference Range Interpretation Comments GONORRHEA, NAAT NEGATIVE NEGATIVE IMPORTA NT NOTICE: SEE (test code = [place] [address]) [email or web address] Note: Assay methodology is nucleic acid amplification b y certified prosthetist vice president m ediated amplification ( TMA) utilizing the A ptima Combo 2 Assay. CHLAMYDIA, NAAT NEGATIVE NEGATIVE IMPORTA NT NOTICE: SEE (test code = [place] [address]) [email or web address] Note: Assay methodology is nucleic acid amplification b y certified prosthetist vice president m ediated amplification ( TMA) utilizing the A ptima Combo 2 Assay. HPV HIGH RISK WITH GENOTYPE, [id number] 12:44:14 Test Item Value Reference Range Interpretation Comments HPV HIGH RISK TEST NOT PERFORMED NEGATIVE QUANTIT Y OF SPECIMEN INTERP (test INSUFFICIENT FO R code = 26972) TESTING. CHARG ES ADJUSTED APPLICABLE. UNL ESS OTHERWISE INDIC ATED, ALL TESTING PER FORMED ATCLINICAL PATH [employer], I [place]. [address] [facility] [place] [address] [facility] JULES DIRECTOR: VANDA PIPER M.D. CLIA NUMBER [id number] CAP ACCREDITATION N O. [id number] VAGINAL PATHOGENS DNA [id number] 12:36:49 Test Item Value Reference Range Interpretation Comments ELIZABETH SPECIES (test code = 32505) POSITIVE NEGATIVE A G. VAGINALIS (test code = ) POSITIVE NEGATIVE A T. VAGINALIS (test code = 12774) NEGATIVE NEGATIVE HIV 1/2 4TH GEN, RFLX [id number] 05:42:13 Test Item Value Reference Range Interpretation Comments HIV 1/2 4TH GEN, RFLX CONF (test NON-REACTIVE NON-REACTIVE code = 3514) HEPATITIS PANEL, [id number] 05:42:13 Test Item Value Reference Range Interpretation Comments HEPATITIS A IgM (test NON-REACTIVE NON-REACTIVE code = 96476) HEPATITIS B CORE IgM NON-REACTIVE NON-REACTIVE (test code = 4644) HEPATITIS B SURF AG NON-REACTIVE NON-REACTIVE (test code = 2739) HEPATITIS C ANTIBODY NON-REACTIVE NON-REACTIVE (test code = 4675) INTERPRETATION (NOTE) Hepatitis A HEPATITIS A: (test code sero logy shows no = 2552) evidence of acu te hepatitis A. INTERPRETATION (NOTE) Hepatitis B HEPATITIS B: (test code sero logy shows no = 41221) evidence of acu te hepatitis B and no indication of exposure to hepatitis B vir us in the previous tra eight months. INTERPRETATION (NOTE) Hepatitis C HEPATITIS C: (test code sero logy shows no = 92902) evidence of exposure to hepatitisC viru s at this time. I t can take up to 12 months after exposure tothe hepatitis C vir us for antibodies to become detectab le in the blood in certain patient s. [id number] 04:08:32 Test Item Value Reference Range Interpretation Comments RPR RESULT (test NON-REACTIVE NON-REACTIVE code = 3501) RPR TITER (test NOT INDIC. NOT INDIC. UNLESS OTHE RWISE code = 3500) TITER INDICATED, ALL TESTING PERFORMED [facility] NICSD PATHOLOGY LABOR [facility] [address] [place] [address] 4 LABORATORY DIRE CTOR: VANDA BENJAMIN M.D. CLIA NUMBER [id number] [place] [id number] CBC with [id number] 02:04:59 Test Item Value Reference Range Interpretation Comments WBC (test code = See_Comment [Automated message] 6690-2) The system [employer] generated this result transmitted ref erence range: 4.30 - 1 1.10 10*3/?L. The re ference range was not u sed to interpret this result as normal/abnor mal. RBC (test code = See_Comment [Automated message] 789-8) The system [employer] generated this result transmitted ref erence range: 3.93 - 5 .25 10*6/?L. The re ference range was not u sed to interpret this result as normal/abnor mal. HGB (test code = 12.2 g/dL 11.6-15.0 718-7) HCT (test code = 37.9 % 35.7-45.2 4544-3) MCV (test code = 87.1 fL 80.6-95.5 787-2) MCH (test code = 28.0 pg 25.9-32.8 785-6) MCHC (test code = 32.2 g/dL 31.6-35.1 786-4) RDW-SD (test code 41.1 fL 39.0-49.9 = 81552-5) RDW-CV (test code 13.2 % 12.0-15.5 = 788-0) PLT (test code = See_Comment [Automated message] 247-3) The system [employer] generated this result transmitted ref erence range: 166 - 35 8 10*3/?L. The re ference range was not u sed to interpret this result as normal/abnor mal. MPV (test code = 10.8 fL 9.5-12.9 14912-9) NRBC/100 WBC (test See_Comment [Automat ed message] code = 0912819348) The syste [employer] which generated this result transmitted ref erence range: 0.0 - 10 .0 /100 WBCs. The refer ence range was not u sed to interpret this result as normal/abnor mal. NRBC x10^3 (test <0.01 See_Comment [Automated message] code = 0605375895) The syste m which generated this result transmitted ref erence range: 10*3/?L. The reference range was not used to interpr et this result as normal/abnormal . GRAN MAT (NEUT) % 50.8 % (test code = 770-8) IMM GRAN % (test 0.40 % code = 9977151500) LYMPH % (test code 39.5 % = 736-9) MONO % (test code 6.8 % = 5905-5) EOS % (test code = 1.8 % 713-8) BASO % (test code 0.7 % = 706-2) GRAN MAT 4.17 10*3/uL 1.88-7.09 x10^3(ANC) (test code = 8798257050) IMM GRAN x10^3 0.03 10*3/uL 0.00-0.06 (test code = 7572784192) LYMPH x10^3 (test 3.25 10*3/uL 1.32-3.29 code = 731-0) MONO x10^3 (test 0.56 10*3/uL 0.33-0.92 code = 742-7) EOS x10^3 (test 0.15 10*3/uL 0.03-0.39 code = 711-2) BASO x10^3 (test 0.06 10*3/uL 0.01-0.07 code = 704-7) [facility] 01:38:06 Test Item Value Reference Range Interpretation Comments APPEARANCE (test code = Hazy Clear A 0933502628) COLOR (test code = Yellow Yellow 3687436954) PH (test code = 4.8-8.0 9911712239) SP GRAVITY (test code = 1.003-1.030 8390538818) GLU U QUAL (test code = Normal Normal 4104479772) BLOOD (test code = Negative Negative 1961547743) KETONES (test code = Negative Negative 0441403246) PROTEIN (test code = Negative Negative 2887-8) UROBILIN (test code = Normal Normal 5220912709) BILIRUBIN (test code = Negative Negative 8284219726) NITRITE (test code = Negative Negative 7184511591) LEUK BRAIN (test code = Negative Negative 9039980669) RBC/HPF (test code = See_Comment [Autom ated message] 2596334286) The system [employer] generated this result transmitted ref erence range: 0 - 3 HP F. The reference range was not used to int erpret this result as normal/abnormal . WBC/HPF (test code = See_Comment [Autom ated message] 5419942992) The system [employer] generated this result transmitted ref erence range: 0 - 5 HP F. The reference range was not used to int erpret this result as normal/abnormal . BACTERIA (test code = Few Negative A 0146886471) AMORPHOUS (test code = Rare Rare HPF 5539731974) SQ EPITH (test code = HPF 7259175785) Lab Interpretation (test Abnormal code = 35777-5) [facility] Metabolic [id number] 01:23:09 Test Item Value Reference Range Interpretation Comments NA (test code = 137 mmol/L 135-145 9599258237) K (test code = 3.9 mmol/L 3.5-5.0 8671214107) CL (test code = 102 mmol/L 98-108 8699120535) CO2 TOTAL (test code = 24 mmol/L 23-31 4859920014) AGAP (test code = 2-16 7026399023) BUN (test code = 13 mg/dL 7-23 6465568781) GLUCOSE (test code = 89 mg/dL 70-110 7123483538) CREATININE (test code = 0.52 mg/dL 0.50-1.04 1843818181) TOTAL BILI (test code = 0.5 mg/dL 0.1-1.8 5877048216) CALCIUM (test code = 10.0 mg/dL 8.6-10.6 7144159003) T PROTEIN (test code = 8.5 g/dL 6.3-8.2 H 1744690410) ALBUMIN (test code = 4.9 g/dL 3.5-5.0 0467634348) ALK PHOS (test code = 59 U/L 34-122 3080726870) ALTv (test code = 11 U/L 5-35 1742-6) AST(SGOT) (test code = 18 U/L 13-40 8839246987) eGFR (test code = mL/min/1.73m2 5494206046) CRYSTAL (test code = CRYSTAL) Association of Glomerular Filtration Rate (GFR) and Staging of Kidney Disease* + --+ --+ ------+| GFR (mL/min/1.73 m2) ?| With Kidney Damage ?| ?Without Kidney Damage+ --------+ --------+ +| ?>90 ?| ?Stage one ?| ? Normal ?+ ---+ ---+ -------+| ?60-89 ?| ?Stage two ?| ? Decreased GFR ? + --+ --+ ------+| ?30-59 ?| ?Stage three ?| ? Stage three ? + --+ --+ ------+| ?15-29 ?| ?Stage four ? | ? Stage four ?+ ---+ ---+ -------+| ?<15 (or dialysis) ? ?| ?Stage five ? | ? Stage five ?+ ---+ ---+ -------+ *Each stage assumes the associated GFR level has been in effect for at least three months. ?Stages 1 to 5, with or without kidney disease, indicate chronic kidney disease. Notes: Determination of stages one and two (with eGFR >59mL/min/1.73 m2) requires estimation of kidney damage for at least three months as defined by structural or functional abnormalities of the kidney, manifested by either:Pathological abnormalities or Markers of kidney damage (including abnormalities in the composition of the blood or urine or abnormalities in imaging tests). Lab Interpretation Abnormal (test code = 15382-5) [facility] HospitalLip[facility], [id number] 01:22:48 Test Item Value Reference Range Interpretation Comments LIPASE (test code = 3276843486) 73 U/L 0-220 Lab Interpretation (test code = Normal 50730-2) [facility] [id number] 01:05:00 Test Item Value Reference Range Interpretation Comments POCT PREG (test code = 1605) negative On board controls acceptable with present C Line (test code = 3574) POCT PREG LOT # (test code = 3575) [id number] POCT PREG TEST DATE (test 09/26/2022 code = 3576) Lab Interpretation (test code = Normal 25818-5) [facility]"
--- NOTE | 2023-03-04 22:24 | RAD REPORT ---
EXAM DESCRIPTION: CT - Head Brain Wo Cont - 03/04/2023 10:18 pm CLINICAL HISTORY: HEADACHE Headache, drowsiness COMPARISON: Head Brain Wo Cont dated 02/28/2017 TECHNIQUE: All CT scans are performed using dose optimization technique as appropriate and may inclu de automated exposure control or mA/KV adjustment according to patient size. FINDINGS: No intracranial hemorrhage, hydrocephalus or extra-axial fluid collection.No areas of brai n edema or evidence of midline shift. The paranasal sinuses and mastoids are clear. The calvarium is intact. IMPRESSION: No acute intracranial abnormality.
[2023-03-04] MEDS ORDERED: ONDANSETRON 4 MG (ODT) TAB ONE (23:09)
[2023-03-04] MEDS ORDERED: ACETAMINOPHEN 325 MG TABLET ONE (23:09)
[2023-03-05 00:32] LABS: Specific Gravity 1.005 (1.005-1.030); Urine Bacteria <20 /HPF (<20); Urine Bilirubin NEGATIVE (Negative); Urine Blood Negative (Negative); Urine Clarity Turbid (Clear); Urine Color Colorless (Yellow); Urine Glucose NEGATIVE (Negative); Urine Protein NEGATIVE (Negative); Urine RBC None Seen /HPF (None Seen); Urine Urobilinogen Normal (Normal)
[2023-03-05 00:45] LABS: Absolute Lymphocytes (CBC) 1.9 K/uL (0.7-4.9); Hematocrit 39.2 % (36.0-45.0); Lymphocytes % 27.4 % (15.3-44.8); MCV 87.2 fL (80-100)
[2023-03-05 00:52] LABS: Potassium 3.3 mEq/L (3.5-5.1)
[2023-03-05] MEDS ORDERED: METOCLOPRAMIDE 10 MG/2mL INJ ONE (01:05)
[2023-03-05] MEDS ORDERED: dexAMETHasone 10 MG/ML VIAL ONE (01:05)
[2023-03-05] MEDS ORDERED: DIPHENHYDRAMINE 50 MG/ML VIAL ONE (01:05)
[2023-03-05] MEDS ORDERED: NA CHLORIDE 0.9% 1,000 ML ONE (01:06)
[2023-03-05] MEDS ORDERED: KETOROLAC 30 MG/ML INJ ONE (01:06)
--- NOTE | 2023-03-05 01:35 | EDPHYS ---
Physician Documentation [facility] Name: Tamar Arzola Age: 32 yrs Sex: Female : 1990 Arrival Date: 03/04/2023 Time: 21:03 Bed 7 Private MD: ED Physician Isis Beasley HPI: 03/04 22:00 This 32 yrs old Female presents to ER via Ambulatory with complaints of cp Headache, Nausea/Vomiting. 22:00 The patient complains of pain to the top of head and forehead. The patient describes cp the headache as aching. 22:00 Onset: The symptoms/episode began/occurred 2 week(s) ago. Associated signs and cp symptoms: Pertinent positives: nausea, Photophobia sinus tenderness, vomiting, sore throat, Pertinent negatives: altered mental status, fever, neck stiffness, vision loss. Severity of symptoms: in the emergency department the pain is unchanged, despite home interventions. Headache History: Other lasted longer than previous. Historical: - Allergies: 21:37 No Known Allergies; pf1 - PMHx: 21:37 None; pf1 - PSHx: 21:37 section; pf1 - Immunization history:: Adult Immunizations up to date. - Social history:: Smoking status: Patient denies any tobacco usage or history of. ROS: 22:05 Constitutional: Negative for body aches, chills, fever, poor PO intake. cp 22:05 Eyes: Negative for injury, pain, redness, and discharge. cp 22:05 ENT: Positive for sinus pain, sore throat, Negative for drainage from ear(s), ear pain, difficulty swallowing, difficulty handling secretions. 22:05 Neck: Negative for pain with movement, pain at rest, stiffness. 22:05 Cardiovascular: Negative for chest pain, edema, palpitations. 22:05 Respiratory: Negative for cough, shortness of breath, wheezing. 22:05 Abdomen/GI: Positive for nausea and vomiting, Negative for abdominal pain, diarrhea, constipation. 22:05 Back: Negative for pain at rest, pain with movement. 22:05 Neuro: Positive for headache, Negative for altered mental status, dizziness, numbness, syncope, weakness. 22:05 All other systems are negative. Exam: 22:10 Constitutional: The patient appears in no acute distress, alert, awake, non-toxic, well cp developed, well nourished, uncomfortable. 22:10 Head/Face: Normocephalic, atraumatic. cp 22:10 Eyes: Periorbital structures: appear normal, Pupils: equal, round, and reactive to light and accomodation, Extraocular movements: intact throughout, Conjunctiva: normal, no exudate, no injection, Sclera: no appreciated abnormality, Lids and lashes: appear normal, bilaterally. 22:10 ENT: External ear(s): are unremarkable, Ear canal(s): are normal, clear, TM's: dullness, bilaterally, Nose: is normal, Mouth: Lips: moist, Oral mucosa: pink and intact, moist, Posterior pharynx: is normal, airway is patent, no erythema, no exudate. 22:10 Neck: ROM/movement: is normal, is supple, without pain, no range of motions limitations, no meningismus, no nuchal rigidity, Lymph nodes: no appreciated lymphadenopathy. 22:10 Chest/axilla: Inspection: normal. 22:10 Cardiovascular: Rate: normal, Rhythm: regular. 22:10 Respiratory: the patient does not display signs of respiratory distress, Respirations: normal, no use of accessory muscles, no retractions, labored breathing, is not present, Breath sounds: are clear throughout, no decreased breath sounds, no stridor, no wheezing. 22:10 Abdomen/GI: Inspection: abdomen appears normal, Palpation: abdomen is soft and non-tender, in all quadrants. 22:10 Back: pain, is absent, ROM is normal. 22:10 Neuro: Orientation: to person, place \T\ time. Mentation: is normal, Cerebellar function: is grossly normal, Motor: moves all fours, strength is normal, Sensation: is normal, Gait: is steady, at a normal pace, without difficulty. Vital Signs: 21:31 BP 105 / 87; Pulse 80; Resp 18; Temp 98.4; Pulse Ox 100% on R/A; Weight 65.77 kg; pf1 Height 5 ft. 2 in. ; Pain 10/10; 23:17 BP 117 / 86; Pulse 80; Resp 16; Temp 98.1; Pulse Ox 98% on R/A; Pain 4/10; sg5 06/09 01:00 BP 108 / 78; Pulse 71; Resp 18; Pulse Ox 98% on R/A; Pain 9/10; pf1 01:56 BP 103 / 77; Pulse 89; Resp 16; Pulse Ox 100% on R/A; kd3 03/04 21:31 Body Mass Index 26.52 (65.77 kg, 157.48 cm) pf1 03/04 21:31 Pain Scale: Adult pf1 23:17 Pain Scale: Adult sg5 03/05 01:00 Pain Scale: Adult pf1 MDM: 03/04 21:42 Patient medically screened. 03/05 01:33 Data reviewed: vital signs, nurses notes, lab test result(s), radiologic studies, CT cp scan. 01:33 Differential diagnosis: intracerebral hemorrhage, meningitis, meningoencephalitis, cp migraine, neoplasm, otitis, sinusitis, tension headache. I considered the following discharge prescriptions or medication management in the emergency department Medications were administered in the Emergency Department. See MAR. Counseling: I had a detailed discussion with the patient and/or guardian regarding: the historical points, exam findings, and any diagnostic results supporting the discharge/admit diagnosis, lab results, radiology results, the need for outpatient follow up, a family practitioner, a neurologist, to return to the emergency department if symptoms worsen or persist or if there are any questions or concerns that arise at home. Response to treatment: the patient's symptoms have markedly improved after treatment, and as a result, I will discharge patient. 03/04 21:42 Order name: Urinalysis W/Microscopic; Complete Time: 01:19 cp 03/04 21:42 Order name: PREGU; Complete Time: 01:19 cp 03/05 00:06 Order name: CBC with Diff; Complete Time: 01:19 cp 03/05 00:06 Order name: BMP; Complete Time: 01:19 cp 03/05 01:19 Interpretation: Normal except: NA 135; K 3.3; CRE 0.48. 03/04 21:42 Order name: CT Head Brain wo Cont; Complete Time: 22:46 cp 03/04 22:46 Interpretation: Report reviewed. 03/05 00:06 Order name: IV; Complete Time: 01:41 cp Administered Medications: 03/04 23:04 Drug: Ondansetron PO 4 mg Route: PO; sg5 03/05 00:00 Follow up: Response: No adverse reaction; Marked relief of symptoms; Nausea is decreasedpf1 03/04 23:04 Drug: Acetaminophen PO 650 mg Route: PO; sg5 03/05 00:00 Follow up: Response: No adverse reaction; No change in condition; Pain is unchanged, pf1 physician notified 01:05 Drug: NS 0.9% IV 1000 ml Route: IV; Rate: 1 bolus; Site: right antecubital; pf1 01:58 Follow up: IV Status: Completed infusion; IV Intake: 1000ml kd3 01:05 Drug: metoCLOPramide IVP 10 mg Route: IVP; Site: right antecubital; pf1 01:55 Follow up: Response: No adverse reaction kd3 01:05 Drug: diphenhydrAMINE IVP 25 mg Route: IVP; Site: right antecubital; pf1 01:56 Follow up: Response: No adverse reaction kd3 01:05 Drug: Ketorolac IVP 15 mg Route: IVP; Site: right antecubital; pf1 01:56 Follow up: Response: No adverse reaction; Pain is decreased kd3 01:05 Drug: Decadron - Dexamethasone IVP 10 mg Route: IVP; Site: right antecubital; pf1 01:56 Follow up: Response: No adverse reaction; Pain is decreased kd3 01:55 Drug: Potassium PO Effervescent Tablet 50 mEq Route: PO; kd3 01:56 Follow up: Response: No adverse reaction kd3 Disposition Summary: 03/05/23 01:34 Discharge Ordered Location: Home cp Problem: new cp Symptoms: have improved cp Condition: Stable cp Diagnosis - Headache cp - Acute pharyngitis, unspecified cp Followup: cp - With: Augustine Posey MD - When: 2 - 3 days - Reason: headache Discharge Instructions: - Discharge Summary Sheet cp - Migraine Headache cp - Pharyngitis cp - Sore Throat cp Forms: - Medication Reconciliation Form cp - Thank You Letter cp - Antibiotic Education cp - Prescription Opioid Use cp Prescriptions: - Fioricet 50-300-40 mg Oral capsule - take 1 capsule by ORAL route 4 times per day as needed for pain; 20 capsule; cp Refills: 0, Product Selection Permitted - Amoxicillin 875 mg Oral Tablet - take 1 tablet by ORAL route every 12 hours for 10 days; 20 tablet; Refills: 0, cp Product Selection Permitted - Ibuprofen 800 mg Oral Tablet - take 1 tablet by ORAL route every 8 hours As needed take with food; 30 tablet; cp Refills: 0, Product Selection Permitted - Zofran 4 mg Oral Tablet - take 1 tablet by ORAL route every 12 hours As needed; 20 tablet; Refills: 0, cp Product Selection Permitted Signatures: Dispatcher [employer] EDMS Jonathon Godinez PA PA cp Doucette, Kyli RN RN kd3 Rachael Cabrera RN RN pf1 Marsha Zhou RN RN sg5
--- NOTE | 2023-03-05 01:35 | ER ---
Nurse's Notes [facility] Name: Tamar Arzola Age: 32 yrs Sex: Female : 1990 Arrival Date: 03/04/2023 Time: 21:03 Bed 7 Private MD: Diagnosis: Headache;Acute pharyngitis, unspecified Presentation: 03/04 21:31 Chief complaint: Patient states: headache for 2 weeks with sinus pressure, worse in the pf1 past 2 days with vomiting x 10 episodes today. Patient stated had a sore throat with onset of symptoms, but not resolved. Patient stated took ibuprofen 800mg at 0800 this AM. Coronavirus screen: Vaccine status: Patient reports being unvaccinated. Client denies travel out of the [place] in the last 14 days. Client presents with at least one sign or symptom that may indicate coronavirus-19. Ebola Screen: Patient negative for fever greater than or equal to 101.5 degrees Fahrenheit, and additional compatible Ebola Virus Disease symptoms. Initial Sepsis Screen: Does the patient meet any 2 criteria? No. Patient's initial sepsis screen is negative. Does the patient have a suspected source of infection? No. Patient's initial sepsis screen is negative. Risk Assessment: Do you want to hurt yourself or someone else? Patient reports no desire to harm self or others. 21:31 Method Of Arrival: Ambulatory 1 21:31 Acuity: JANAY 3 pf1 03/05 01:57 Onset of symptoms was March 05, 2023. kd3 Triage Assessment: 01:57 Headache History: Denies prior headaches. General: Appears uncomfortable. Pain: Pain at 3 worst was 8 out of 10 on a pain scale. Pain began gradually, Also complains of nausea. Historical: - Allergies: 03/04 21:37 No Known Allergies; pf1 - PMHx: 21:37 None; pf1 - PSHx: 21:37 section; pf1 - Immunization history:: Adult Immunizations up to date. - Social history:: Smoking status: Patient denies any tobacco usage or history of. Screenin:17 [facility] ED Fall Risk Assessment (Adult) History of falling in the last 3 months, sg5 including since admission No falls in past 3 months (0 pts). Abuse screen: Denies threats or abuse. Nutritional screening: No deficits noted. Tuberculosis screening: No symptoms or risk factors identified. Assessment: 23:17 General: Appears in no apparent distress. comfortable, Behavior is calm, cooperative, sg5 appropriate for age. Pain: Complains of pain in head and throat. Neuro: Level of Consciousness is awake, alert, obeys commands, Oriented to person, place, time, situation, Appropriate for age. Cardiovascular: Capillary refill < 3 seconds Patient's skin is warm and dry. Respiratory: Airway is patent Trachea midline Respiratory effort is even, unlabored, Respiratory pattern is regular, symmetrical. GI: Abdomen is flat, non-distended, Reports nausea. : No signs and/or symptoms were reported regarding the genitourinary system. EENT: Reports nasal congestion pain. EENT: Reports. Derm: No signs and/or symptoms reported regarding the dermatologic system. Musculoskeletal: No signs and/or symptoms reported regarding the musculoskeletal system. 03/05 00:00 Reassessment: Patient appears in no apparent distress at this time. No changes from pf1 previously documented assessment. Patient and/or family updated on plan of care and expected duration. Pain level reassessed. Patient is alert, oriented x 3, equal unlabored respirations, skin warm/dry/pink. Patient states symptoms have not improved. 01:00 Reassessment: Patient appears in no apparent distress at this time. No changes from pf1 previously documented assessment. Patient and/or family updated on plan of care and expected duration. Pain level reassessed. Patient is alert, oriented x 3, equal unlabored respirations, skin warm/dry/pink. Patient states symptoms have not improved. Vital Signs: 03/04 21:31 BP 105 / 87; Pulse 80; Resp 18; Temp 98.4; Pulse Ox 100% on R/A; Weight 65.77 kg; pf1 Height 5 ft. 2 in. ; Pain 10/10; 23:17 BP 117 / 86; Pulse 80; Resp 16; Temp 98.1; Pulse Ox 98% on R/A; Pain 4/10; sg5 03/05 01:00 BP 108 / 78; Pulse 71; Resp 18; Pulse Ox 98% on R/A; Pain 9/10; pf1 01:56 BP 103 / 77; Pulse 89; Resp 16; Pulse Ox 100% on R/A; kd3 03/04 21:31 Body Mass Index 26.52 (65.77 kg, 157.48 cm) pf1 03/04 21:31 Pain Scale: Adult pf1 23:17 Pain Scale: Adult sg5 03/05 01:00 Pain Scale: Adult pf1 ED Course: 03/04 21:06 Patient arrived in ED. kj1 21:37 Triage completed. pf1 21:41 Jonathon Godinez PA is PHCP. cp 21:41 Isis Beasley MD is Attending Physician. cp 22:20 CT Head Brain wo Cont In Process Unspecified. EDMS 23:17 Patient has correct armband on for positive identification. Bed in low position. Call sg5 light in reach. Side rails up X 1. Valuables Left with patient. 03/05 00:24 Inserted saline lock: 20 gauge in right antecubital area, using aseptic technique. sg5 Blood collected. 01:34 Augustine Posey MD is Referral Physician. cp 01:44 Emily Black, KADY is Primary Nurse. kd3 01:57 Arm band placed on right wrist. kd3 01:57 No provider procedures requiring assistance completed. IV discontinued, intact, kd3 bleeding controlled, No redness/swelling at site. Pressure dressing applied. Administered Medications: 03/04 23:04 Drug: Ondansetron PO 4 mg Route: PO; sg5 03/05 00:00 Follow up: Response: No adverse reaction; Marked relief of symptoms; Nausea is decreasedpf1 03/04 23:04 Drug: Acetaminophen PO 650 mg Route: PO; sg5 03/05 00:00 Follow up: Response: No adverse reaction; No change in condition; Pain is unchanged, pf1 physician notified 01:05 Drug: NS 0.9% IV 1000 ml Route: IV; Rate: 1 bolus; Site: right antecubital; pf1 01:58 Follow up: IV Status: Completed infusion; IV Intake: 1000ml kd3 01:05 Drug: metoCLOPramide IVP 10 mg Route: IVP; Site: right antecubital; pf1 01:55 Follow up: Response: No adverse reaction kd3 01:05 Drug: diphenhydrAMINE IVP 25 mg Route: IVP; Site: right antecubital; pf1 01:56 Follow up: Response: No adverse reaction kd3 01:05 Drug: Ketorolac IVP 15 mg Route: IVP; Site: right antecubital; pf1 01:56 Follow up: Response: No adverse reaction; Pain is decreased kd3 01:05 Drug: Decadron - Dexamethasone IVP 10 mg Route: IVP; Site: right antecubital; pf1 01:56 Follow up: Response: No adverse reaction; Pain is decreased kd3 01:55 Drug: Potassium PO Effervescent Tablet 50 mEq Route: PO; kd3 01:56 Follow up: Response: No adverse reaction kd3 Medication: 01:57 VIS not applicable for this client. kd3 Intake: 01:58 IV: 1000ml; Total: 1000ml. kd3 Outcome: 01:34 Discharge ordered by MD. cp 01:57 Discharged to home ambulatory. kd3 01:57 Condition: stable 01:57 Discharge instructions given to patient, Instructed on discharge instructions, follow up and referral plans. medication usage, Demonstrated understanding of instructions, follow-up care, medications, Prescriptions given X 4. 02:01 Patient left the ED. kd3 Signatures: Dispatcher [employer] EDMS Jonathon Godinez PA PA cp Jackson, Kandis kj1 Emily Black RN RN kd3 Rachael Cabrera RN RN pf1 Marsha Zhou RN RN sg5
[2023-03-05] MEDS ORDERED: POTASSIUM 25 MEQ EFFERV TAB ONE (01:51)
[2023-03-05 02:06] VITALS: TEMP 98.1
[2023-03-05 02:09] VITALS: BP 103/77; O2SAT 100
== END 2023-03-05 02:01 | disposition home or self-care (01) ==
LOC: ER 21:03
DX: R51.9 Headache, unspecified (principal); J02.9 Acute pharyngitis, unspecified
CPT/HCPCS: 36415; 70450; 80048; 81001; 81025; 85025; 96361; 96374; 96375; 99284; J1100; J1200; J2765; J7030; Q0162

== ENCOUNTER 2024-12-11 05:43 | Emergency (ER) | payer OTHER, SELFPAY ==
--- OUTSIDE RECORDS SUMMARY | 2024-12-11 05:47 | XMS REPORT | Continuity of Care Document ---
Author Name Unknown Address [address] [facility] [address] [place] [address] Organization [employer] [place] Address [address] [facility] 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 Phone Pcp, Patient Does Not Have A Primary Care Physic michele EMY LUCIANO Attending Clinician Unavailable HARI FRIAS Attending Clinician Unavailabl e G_Pappas Attending Clinician Unavailable AMINA MATOS Attending Clinician Unavailabl Nannette Meza Attending Clinician [phone] HARI FRIAS Admitting Clinician Unavailesmer e G_Pappas Admitting Clinician Unavailable Payers Payer Name Policy Type Policy Number Effective Date Expirati on Date Source [facility] (MEDICAID HMO) [id number] 2016 00:00:00 [facility] (MEDICAID REPLACEMENT - HMO) [id number] Problems Condition Name Condition Details Condition Category Status Onset Date Resolution Date Last Treatment Date Treating Clinician Comments Source Large for gestation age fetus Large for Gestation Age Fetus Problem Active 02-01 00:00: 00 [facility] 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 ICD10 Diagnosis Term [employer] [facility] Papanicola ou smear of cervix with low grade squamous intraepith elial lesion (LGSIL) Papanicola ou smear of cervix with low grade squamous intraepith elial lesion (LGSIL) Disease Active 8-17 00:00: 00 [facility] Allergies, Adverse Reactions, Alerts Allergy Name Allergy Type Status Severity Reaction(s) Onset Date Inactive Date Treating Clinician Comments Source NO KNOWN ALLERGIE S Drug Class Active [facility] Social History Social Habit Start Date Stop Date Quantity Comments Source Exposure to SARS-CoV-2 (event) Not sure [facility] Sex Assigned At 1990 00:00:00 1990 00:00:00 [facility] Smoking Status Start Date Stop Date Source Former Smoker [facility] Unknown if ever smoked [facility] Medications Ordered Medication Name Filled Medication Name Start Date Stop Date Current Medication? Ordering Clinician Indication Dosage Frequency Signature (SIG) Comments Components Source ceftriaxone 1 gram solution for injection Take 1 g by injection route. ceftriaxone 1 gram solution for injection Take 1 g by injection route. 02-28 16:36: 16 No 1g ceftriaxon e 1 gram solution for injection Take 1 g by injection route. [facility] vitamin w/FA ( RX OR GENERIC EQUIVALENT) tablet 04-11 00:00: 00 Yes 1{tbl} Take 1 Tab by mouth daily. [facility] docusate calcium (SURFAK) 240 mg capsule 04-11 00:00: 00 Yes 240mg Take 1 Cap by mouth once daily as needed for Constipati on. [facility] ferrous sulfate 325 mg (65 mg iron) tablet 04-11 00:00: 00 Yes 325mg Take 1 Tab by mouth 2 (two) times daily. [facility] norethindro ne (MICRONOR-2 8) 0.35 mg tablet 04-11 00:00: 00 Yes .35mg Take 1 Tab by mouth daily. [facility] ibuprofen (MOTRIN) 600 mg tablet 04-11 00:00: 00 Yes 600mg Take 1 Tab by mouth every 6 (six) hours as needed for Pain. [facility] ferrous gluconate 324 mg (38 mg iron) tablet TAKE 1 TABLET BY MOUTH ONCE DAILY ferrous gluconate 324 mg (38 mg iron) tablet TAKE 1 TABLET BY MOUTH ONCE DAILY No ferrous gluconate 324 mg (38 mg iron) tablet TAKE 1 TABLET BY MOUTH ONCE DAILY [facility] Vitafol-One 29 mg iron-1 mg-200 mg capsule Take 1 capsule(s) by mouth at bedtime every night. Vitafol-One 29 mg iron-1 mg-200 mg capsule Take 1 capsule(s) by mouth at bedtime every night. No Vitafol-On e 29 mg iron-1 mg-200 mg capsule Take 1 capsule(s) by mouth at bedtime every night. [facility] metoclopram collin 10 mg tablet TAKE 1 TABLET BY MOUTH EVERY 6 HOURS NEEDED FOR NAUSEA metoclopram collin 10 mg tablet TAKE 1 TABLET BY MOUTH EVERY 6 HOURS NEEDED FOR NAUSEA No metoclopra mide 10 mg tablet TAKE 1 TABLET BY MOUTH EVERY 6 HOURS NEEDED FOR NAUSEA [facility] acetaminoph en 300 mg-codeine 30 mg tablet TAKE 1 TO 2 TABLETS BY MOUTH EVERY 6 HOURS NEEDED FOR PAIN acetaminoph en 300 mg-codeine 30 mg tablet TAKE 1 TO 2 TABLETS BY MOUTH EVERY 6 HOURS NEEDED FOR PAIN No acetaminop hen 300 mg-codeine 30 mg tablet TAKE 1 TO 2 TABLETS BY MOUTH EVERY 6 HOURS NEEDED FOR PAIN [facility] amoxicillin 875 mg-potassiu m clavulanate 125 mg tablet Take 1 tablet twice a day by oral route for 7 days. amoxicillin 875 mg-potassiu m clavulanate 125 mg tablet Take 1 tablet twice a day by oral route for 7 days. No 1 BID amoxicilli n 875 mg-potassi um clavulanat e 125 mg tablet Take 1 tablet twice a day by oral route for 7 days. [facility] Bactrim DS 800 mg-160 mg tablet Take 1 tablet twice a day by oral route for 7 days. Bactrim DS 800 mg-160 mg tablet Take 1 tablet twice a day by oral route for 7 days. No 1 BID Bactrim DS 800 mg-160 mg tablet Take 1 tablet twice a day by oral route for 7 days. [facility] fluconazole 100 mg tablet Take 1 tablet every other day by oral route for 6 days. fluconazole 100 mg tablet Take 1 tablet every other day by oral route for 6 days. No 1 Q2D fluconazol e 100 mg tablet Take 1 tablet every other day by oral route for 6 days. [facility] ibuprofen 800 mg tablet TAKE 1 TABLET BY MOUTH EVERY 6 HOURS NEEDED FOR PAIN ibuprofen 800 mg tablet TAKE 1 TABLET BY MOUTH EVERY 6 HOURS NEEDED FOR PAIN No ibuprofen 800 mg tablet TAKE 1 TABLET BY MOUTH EVERY 6 HOURS NEEDED FOR PAIN [facility] hydrocodone 5 mg-acetamin ophen 325 mg tablet take 1-2 tabs p.o. q 6 hours PRN pain hydrocodone 5 mg-acetamin ophen 325 mg tablet take 1-2 tabs p.o. q 6 hours PRN pain No hydrocodon e 5 mg-acetami nophen 325 mg tablet take 1-2 tabs p.o. q 6 hours PRN pain [facility] Vital Signs Vital Name Observation Time Observation Value Comments S ource BP Diastolic 2024-03-03 00:00:00 77 mm[Hg] [facility] Body Weight 2024-03-03 00:00:00 153 [lb_av] [facility] BP Systolic 2024-03-03 00:00:00 113 mm[Hg] [facility] Height 2024-03-03 00:00:00 62 [in_i] [facility] BMI (Body Mass Index) 2024-03-03 00:00:00 28 kg/m2 [facility] BP Systolic 2024-02-29 00:00:00 125 mm[Hg] [facility] Body Weight 2024-02-29 00:00:00 162.5 [lb_av] [facility] Height 2024-02-29 00:00:00 62 [in_i] [facility] BP Diastolic 2024-02-29 00:00:00 86 mm[Hg] [facility] BMI (Body Mass Index) 2024-02-29 00:00:00 29.7 kg/m2 [facility] Height 2024-02-15 00:00:00 62 [in_i] [facility] Body Weight 2024-02-15 00:00:00 170.2 [lb_av] [facility] BP Systolic 2024-02-15 00:00:00 109 mm[Hg] [facility] BMI (Body Mass Index) 2024-02-15 00:00:00 31.1 kg/m2 [facility] BP Diastolic 2024-02-15 00:00:00 78 mm[Hg] [facility] Body Weight 2024-02-02 00:00:00 168.6 [lb_av] [facility] BMI (Body Mass Index) 2024-02-02 00:00:00 30.8 kg/m2 [facility] Height 2024-02-02 00:00:00 62 [in_i] [facility] BP Diastolic 2024-02-02 00:00:00 72 mm[Hg] [facility] BP Systolic 2024-02-02 00:00:00 111 mm[Hg] [facility] BP Systolic 2024-01-25 00:00:00 101 mm[Hg] [facility] BMI (Body Mass Index) 2024-01-25 00:00:00 30.8 kg/m2 [facility] Height 2024-01-25 00:00:00 62 [in_i] [facility] BP Diastolic 2024-01-25 00:00:00 79 mm[Hg] [facility] Body Weight 2024-01-25 00:00:00 168.4 [lb_av] [facility] BMI (Body Mass Index) 2024-01-06 00:00:00 30.5 kg/m2 [facility] Height 2024-01-06 00:00:00 62 [in_i] [facility] Body Weight 2024-01-06 00:00:00 166.7 [lb_av] [facility] BP Diastolic 2024-01-06 00:00:00 66 mm[Hg] [facility] BP Systolic 2024-01-06 00:00:00 98 mm[Hg] [facility] Height 2023-12-15 00:00:00 62 [in_i] [facility] Height 2023-12-10 00:00:00 62 [in_i] [facility] BP Diastolic 2023-12-10 00:00:00 74 mm[Hg] [facility] BMI (Body Mass Index) 2023-12-10 00:00:00 30.3 kg/m2 [facility] Body Weight 2023-12-10 00:00:00 165.7 [lb_av] [facility] BP Systolic 2023-12-10 00:00:00 109 mm[Hg] [facility] BP Systolic 2023-10-28 00:00:00 114 mm[Hg] [facility] Body Weight 2023-10-28 00:00:00 157 [lb_av] [facility] Height 2023-10-28 00:00:00 62 [in_i] [facility] BP Diastolic 2023-10-28 00:00:00 76 mm[Hg] [facility] Systolic blood pressure 2021-05-29 04:31:00 103 mm[Hg] [facility] Diastolic blood pressure 2021-05-29 04:31:00 79 mm[Hg] [facility] Heart rate 2021-05-29 04:31:00 63 /min [facility] Respiratory rate 2021-05-29 04:31:00 20 /min [facility] Oxygen saturation in Arterial blood by Pulse oximetry 2021-05-29 04:31:00 100 /min [facility] Body temperature 2021-05-29 00:47:00 36.11 Cristy [facility] Body height 2021-05-29 00:47:00 157.5 cm [facility] Body weight 2021-05-29 00:47:00 65.772 kg [facility] BMI 2021-05-29 00:47:00 26.52 kg/m2 [facility] Procedures Procedure Date / Time Performed Performing Clinician Source US, obstetric, limited 2024-02-02 00:00:00 [facility] US, obstetric, limited 2024-01-06 00:00:00 [facility] ULTRASOUND REPEAT 2023-12-10 00:00:00 [facility] ULTRASOUND, UTERUS REAL TIME WITH IMAGE DOC, AND MATERNAL EVAL PLUS DETAILED ANATOMIC EXAMINATION, TRANSABDOMINAL APPROACH; SINGLE OR FIRST GESTATION 2023-10-28 00:00:[address] [facility] [address] ABDOMEN PELVIS WO CONTRAST 2021-05-29 03:22:42 Nannette Melchor [facility] XR CHEST 1 VW 2021-05-29 03:22:06 Nannette Melchor [facility] POCT TEST 2021-05-29 01:05:00 Jessica Gonsalez [facility] LIPASE 2021-05-29 01:03:00 Jessica Gonsalez [facility] COMP. METABOLIC PANEL ([id number]) 2021-05-29 01:03:00 Jessica Gonsalez [facility] CBC WITH DIFF 2021-05-29 01:03:00 Jessica Gonsalez [facility] URINALYSIS 2021-05-29 01:03:00 Jessica Gonsalez [facility] CONSENT/REFUSAL FOR DIAGNOSIS AND TREATMENT 2021-05-29 00:39:49 Doctor Unassigned, [place] [facility] NOTICE OF PRIVACY PRACTICES 2021-05-29 00:38:34 Doctor Unassigned, [place] [facility] Delivery 2011-04-09 00:00:00 [facility] Delivery 2008-05-10 00:00:00 [facility] Encounters Start Date/Time End Date/Time Encounter Type Admission Type Attending Clinicians Care Facility Care Department Encounter ID Source 2024-03-03 00:00:00 2024-03-03 00:00:00 Hari Frias MD: [address], [address], [place] [address] , Ph. [phone] [facility] [id number] 606 [facility] 2024-03-02 19:10:00 2024-03-02 21:56:00 Emergency ER EMY LUCIANO [facility] [id number] [facility] 2024-02-29 00:00:00 2024-02-29 00:00:00 Hari Frias MD: [address], [address], [place] [address] , Ph. [phone] [facility] [id number] [facility] 2024-02-22 06:24:00 2024-02-24 12:05:00 Inpatient HARI [facility] [id number] [facility] 2024-02-15 00:00:00 2024-02-15 00:00:00 Hari Frias MD: [address], [address], [place] [address] , Ph. [phone] [facility] - [place] [id number] [facility] 2024-02-02 00:00:00 2024-02-02 00:00:[address] [facility]: [address], [address], [place] [address] , Ph. [phone] [facility] - [place] [id number] [facility] 2024-01-25 00:00:00 2024-01-25 00:00:00 Hari Frias MD: [address], [address], [place] [address] , Ph. [phone] [facility] [id number] [facility] 2024-01-06 00:00:00 2024-01-06 00:00:00 Hari Frias MD: [address], [address], [place] [address] , Ph. [phone] [facility] [id number] [facility] 2023-12-22 00:00:00 2023-12-22 00:00:00 Outpatient [place] [id number] [facility] 2023-12-15 00:00:00 2023-12-15 00:00:00 Hari Frias MD: [address], [address] [address] , Ph. [phone] [facility] [place] [id number] [facility] 2023-12-14 00:00:00 2023-12-14 00:00:00 Outpatient G_Pappas [facility] [id number] [facility] 2023-12-10 09:11:00 2023-12-10 09:11:00 Outpatient HARI VALDES [facility] [id number] [facility] 2023-12-10 00:00:00 2023-12-10 00:00:00 Hari Frias MD: [address] [place] [address], [address] [address] , Ph. [phone] G_Pappas [facility] [place] [id number] 0315 [facility] 2023-12-10 00:00:00 2023-12-10 00:00:00 Hari Frias MD: [address], [address] [address] , Ph. [phone] [facility] [id number] [facility] 2023-10-29 00:00:00 2023-10-29 00:00:00 Outpatient G_Pappas [facility] [id number] [facility] 2023-10-28 11:21:00 2023-10-28 11:21:00 Outpatient HARI VALDES [facility] [id number] [facility] 2023-10-28 00:00:00 2023-10-28 00:00:00 Outpatient G_Pappas [facility] [id number] [facility] 2023-10-28 00:00:00 2023-10-28 00:00:00 Hari Frias MD: [address], [address], [place] [address] , Ph. [phone] [facility] [id number] 2023-10-13 00:00:00 2023-10-13 00:00:00 [facility] [id number] [facility] 2023-09-28 21:43:00 2023-09-29 00:33:00 Emergency ER AMINA MATOS [facility] [id number] [facility] 2021-05-28 20:07:00 2021-05-28 23:59:00 Emergency Adriano Melchorya S [facility] [id number] [facility] 2021-05-28 19:41:00 2021-05-28 19:41:00 Emergency X [facility] ERT [id number] [facility] 2020-08-14 02:20:00 2020-08-14 02:20:00 [facility] [id number] [facility] 2017-06-16 06:06:00 2017-06-18 09:45:00 Inpatient HARI VALDES [facility] [id number] [facility] 2017-05-28 11:12:00 2017-05-28 11:12:00 Outpatient HARI VALDES [facility] [id number] [facility] 2017-04-07 14:31:00 2017-04-07 14:31:00 Outpatient HARI VALDES [facility] [id number] [facility] 2017-01-01 15:17:00 2017-01-01 15:17:00 Outpatient HARI VALDES [facility] [id number] [facility] 2016-11-23 14:55:00 2016-11-23 14:55:00 Outpatient HARI VALDES [facility] [id number] [facility] Results Test Description Test Time Test Comments Results Result Co mments Source [facility] [id number] 10:16:00* Test Item Value Reference Range Interpretation Comme nts .hepatitis B surface antigen (test code = .hepatitis B surface antigen) Negative negative [facility] W Auto Differential panel - [id number] 06:25:00 * Test Item Value Reference Range Interpretation Comme nts white blood count (test code = white blood count) 8.3 K/uL 4.0-11.5 red blood count (test code = red blood count) 3.53 M/uL 3.80-5.20 L hemoglobin (test code = hemoglobin) 9.7 g/dL 10.5-15.7 L hematocrit (test code = hematocrit) 30.8 % 34.0-50.0 L mean corpuscular volume (consuelo t code = mean corpuscular volume) 87.3 fL 86.0-100.0 mean corpuscular hemoglobin (test code = mean corpuscular hemoglobin) 27.5 pg 26.2-33.4 mean corpuscular HGB conc (t est code = mean corpuscular HGB conc) 31.5 g/dL 30.0-34.0 red cell distribution width (test code = red cell distribution width) 13.1 % 12.0-15.5 platelet count (test code = platelet count) 227 K/uL 165-450 mean platelet volume (test c ode = mean platelet volume) 10.5 fL 9.4-12.6 neutrophils % (test code = neutrophils %) 69.7 % 44.4-80.1 Ig% (test code = Ig%) 0.4 % 0.0-0.4 lymphocyte% (test code = lymphocyte%) 20.9 % 10.0-50.0 mono % (test code = mono %) 7.6 % 3.6-12.0 eos % (test code = eos %) 1.2 % 0.0-5.4 basophil % (test code = baso yeni %) 0.2 % 0.1-1.2 absolute neutrophil count (t est code = absolute neutrophil count) 5.77 K/uL 1.56-6.13 Ig# (test code = Ig#) 0.03 K/uL 0.00-0.03 lymph # (test code = lymph #) 1.73 K/uL 1.18-3.74 mono # (test code = mono #) 0.63 K/uL 0.24-0.86 eos # (test code = eos #) 0.10 K/uL 0.04-0.36 basophil # (test code = baso yeni #) 0.02 K/uL 0.01-0.08 NRBC% (test code = NRBC%) 0 /100 WBC 0-0.2 NRBC# (test code = NRBC#) 0 K/uL [facility] W Auto Differential panel - [id number] 20:53:00 * Test Item Value Reference Range Interpretation Comme nts white blood count (test code = white blood count) 6.7 K/uL 4.0-11.5 red blood count (test code = red blood count) 3.60 M/uL 3.80-5.20 L hemoglobin (test code = hemoglobin) 10.0 g/dL 10.5-15.7 L hematocrit (test code = hematocrit) 31.6 % 34.0-50.0 L mean corpuscular volume (consuelo t code = mean corpuscular volume) 87.8 fL 86.0-100.0 mean corpuscular hemoglobin (test code = mean corpuscular hemoglobin) 27.8 pg 26.2-33.4 mean corpuscular HGB conc (t est code = mean corpuscular HGB conc) 31.6 g/dL 30.0-34.0 red cell distribution width (test code = red cell distribution width) 12.9 % 12.0-15.5 platelet count (test code = platelet count) 233 K/uL 165-450 mean platelet volume (test c ode = mean platelet volume) 10.4 fL 9.4-12.6 neutrophils % (test code = neutrophils %) 74.5 % 44.4-80.1 Ig% (test code = Ig%) 0.4 % 0.0-0.4 lymphocyte% (test code = lymphocyte%) 18.0 % 10.0-50.0 mono % (test code = mono %) 6.1 % 3.6-12.0 eos % (test code = eos %) 0.7 % 0.0-5.4 basophil % (test code = baso yeni %) 0.3 % 0.1-1.2 absolute neutrophil count (t est code = absolute neutrophil count) 5.00 K/uL 1.56-6.13 Ig# (test code = Ig#) 0.03 K/uL 0.00-0.03 lymph # (test code = lymph #) 1.21 K/uL 1.18-3.74 mono # (test code = mono #) 0.41 K/uL 0.24-0.86 eos # (test code = eos #) 0.05 K/uL 0.04-0.36 basophil # (test code = baso yeni #) 0.02 K/uL 0.01-0.08 NRBC% (test code = NRBC%) 0 /100 WBC 0-0.2 NRBC# (test code = NRBC#) 0 K/uL [id number] 14:20:00* Test Item Value Reference Range Interpretation Comme nts RPR (test code = RPR) NONREACTIVE nonreactive [facility] Differential panel - [id number] 07:00:00 * Test Item Value Reference Range Interpretation Comme nts white blood count (test code = white blood count) 7.0 K/uL 4.0-11.5 red blood count (test code = red blood count) 4.54 M/uL 3.80-5.20 hemoglobin (test code = hemoglobin) 12.4 g/dL 10.5-15.7 hematocrit (test code = hematocrit) 39.4 % 34.0-50.0 mean corpuscular volume (consuelo t code = mean corpuscular volume) 86.8 fL 86.0-100.0 mean corpuscular hemoglobin (test code = mean corpuscular hemoglobin) 27.3 pg 26.2-33.4 mean corpuscular HGB conc (t est code = mean corpuscular HGB conc) 31.5 g/dL 30.0-34.0 red cell distribution width (test code = red cell distribution width) 12.8 % 12.0-15.5 platelet count (test code = platelet count) 272 K/uL 165-450 mean platelet volume (test c ode = mean platelet volume) 10.1 fL 9.4-12.6 neutrophils % (test code = neutrophils %) 63.3 % 44.4-80.1 Ig% (test code = Ig%) 0.4 % 0.0-0.4 lymphocyte% (test code = lymphocyte%) 28.2 % 10.0-50.0 mono % (test code = mono %) 6.5 % 3.6-12.0 eos % (test code = eos %) 1.2 % 0.0-5.4 basophil % (test code = baso yeni %) 0.4 % 0.1-1.2 absolute neutrophil count (t est code = absolute neutrophil count) 4.40 K/uL 1.56-6.13 Ig# (test code = Ig#) 0.03 K/uL 0.00-0.03 lymph # (test code = lymph #) 1.96 K/uL 1.18-3.74 mono # (test code = mono #) 0.45 K/uL 0.24-0.86 eos # (test code = eos #) 0.08 K/uL 0.04-0.36 basophil # (test code = baso yeni #) 0.03 K/uL 0.01-0.08 NRBC% (test code = NRBC%) 0 /100 WBC 0-0.2 NRBC# (test code = NRBC#) 0 K/uL [facility] (dipstick) panel - [id number] 11:29:41* Test Item Value Reference Range Interpretation Comme nts Leukocytes (test code = Leukocytes) Negative Nitrite (test code = Nitrite) negative Urobilinogen (test code = Urobilinogen) .2 Protein (test code = Protein) Negative pH (test code = pH) 7.0 Blood (test code = Blood) Negative Specific [place] (test code = Specific [place]) 1.020 Ketone (test code = Ketone) Negative Bilirubin (test code = Bilirubin) Negative Glucose (test code = Glucose) Negative Appearance (test code = Appearance) Clear Color (test code = Color) Yellow [facility] macro (dipstick) panel - [id number] 13:54:57* Test Item Value Reference Range Interpretation Comme nts Leukocytes (test code = Leukocytes) Negative Nitrite (test code = Nitrite) negative Urobilinogen (test code = Urobilinogen) .2 Protein (test code = Protein) Negative pH (test code = pH) 7.0 Blood (test code = Blood) Negative Specific [place] (test code = Specific [place]) 1.020 Ketone (test code = Ketone) Large Bilirubin (test code = Bilirubin) Negative Glucose (test code = Glucose) Negative Appearance (test code = Appearance) Clear Color (test code = Color) Yellow [facility] [id number] 00:00:00* Test Item Value Reference Range Interpretation Comme nts CT/NG (test code = CT/NG) normal trichomonas vaginalis addon - swab (test code = trichomonas vaginalis addon - swab) normal [facility]Presence] in Vag+Rectum by Organism specific [id number] 00:00:00* Test Item Value Reference Range Interpretation Comme nts group B strep (test code = g roup B strep) negative [facility] macro (dipstick) panel - [id number] 09:48:00* Test Item Value Reference Range Interpretation Comme nts Leukocytes (test code = Leukocytes) Trace Nitrite (test code = Nitrite) negative Urobilinogen (test code = Urobilinogen) .2 Protein (test code = Protein) Trace pH (test code = pH) 7.0 Blood (test code = Blood) Negative Specific [place] (test code = Specific [place]) 1.020 Ketone (test code = Ketone) Negative Bilirubin (test code = Bilirubin) Negative Glucose (test code = Glucose) Negative Appearance (test code = Appearance) Clear Color (test code = Color) Yellow [facility] macro (dipstick) panel - [id number] 11:29:53* Test Item Value Reference Range Interpretation Comme nts Leukocytes (test code = Leukocytes) Negative Nitrite (test code = Nitrite) negative Urobilinogen (test code = Urobilinogen) .2 Protein (test code = Protein) Negative pH (test code = pH) 7.0 Blood (test code = Blood) Negative Specific [place] (test code = Specific [place]) 1.025 Ketone (test code = Ketone) Negative Bilirubin (test code = Bilirubin) Negative Glucose (test code = Glucose) Negative Appearance (test code = Appearance) Clear Color (test code = Color) Yellow [facility] tolerance 3 hours panel - Serum or Plasma 2023-12-15 08:32:00* Test Item Value Reference Range Interpretation Comme nts Results (test code = Results) fasting 88, 1 hr-225, 2hr-155 3hr- 120 [facility]RPR2024-03-15 13:26:00* Test Item Value Reference Range Interpretation Comme nts RPR (test code = RPR) nonreactive nonreactive [facility] (in-house)2023-12-10 13:21:00* Test Item Value Reference Range Interpretation Comme nts HIV P24 Ag (test code = HIV P24 Ag) non-reactive nonreactive HIV-1/2 Ab (test code = HIV- 1/2 Ab) non-reactive nonreactive [facility] panel drug [id number] 11:26:00* Test Item Value Reference Range Interpretation Comme nts amphetamines screen urine (t est code = amphetamines screen urine) negative negative barbiturates, urine quant. ( test code = barbiturates, urine quant.) negative negative benzodiazepines screen urine (test code = benzodiazepines screen urine) negative negative cannabinoids (test code = cannabinoids) negative negative cocaine (test code = cocaine) negative negative opiates (test code = opiates) negative negative hydrocodone (test code = hydrocodone) negative negative fentanyl (test code = fentanyl) negative negative phencyclidine (test code = phencyclidine) negative negative methadone (test code = methadone) negative negative propoxyphene (test code = propoxyphene) negative negative oxycodone (test code = oxycodone) negative negative drug screen note (test code = drug screen note) . [facility] W Auto Differential panel - [id number] 11:13:00 * Test Item Value Reference Range Interpretation Comme nts white blood count (test code = white blood count) 7.9 K/uL 4.0-11.5 red blood count (test code = red blood count) 3.83 M/uL 3.80-5.20 hemoglobin (test code = hemoglobin) 10.7 g/dL 10.5-15.7 hematocrit (test code = hematocrit) 33.6 % 34.0-50.0 L mean corpuscular volume (consuelo t code = mean corpuscular volume) 87.7 fL 86.0-100.0 mean corpuscular hemoglobin (test code = mean corpuscular hemoglobin) 27.9 pg 26.2-33.4 mean corpuscular HGB conc (t est code = mean corpuscular HGB conc) 31.8 g/dL 30.0-34.0 red cell distribution width (test code = red cell distribution width) 12.8 % 12.0-15.5 platelet count (test code = platelet count) 310 K/uL 165-450 mean platelet volume (test c ode = mean platelet volume) 10.7 fL 9.4-12.6 neutrophils % (test code = neutrophils %) 73.1 % 44.4-80.1 Ig% (test code = Ig%) 1.9 % 0.0-0.4 H lymphocyte% (test code = lymphocyte%) 14.5 % 10.0-50.0 mono % (test code = mono %) 9.6 % 3.6-12.0 eos % (test code = eos %) 0.6 % 0.0-5.4 basophil % (test code = baso yeni %) 0.3 % 0.1-1.2 absolute neutrophil count (t est code = absolute neutrophil count) 5.76 K/uL 1.56-6.13 Ig# (test code = Ig#) 0.15 K/uL 0.00-0.03 H lymph # (test code = lymph #) 1.14 K/uL 1.18-3.74 L mono # (test code = mono #) 0.76 K/uL 0.24-0.86 eos # (test code = eos #) 0.05 K/uL 0.04-0.36 basophil # (test code = baso yeni #) 0.02 K/uL 0.01-0.08 NRBC% (test code = NRBC%) 0 /100 WBC 0-0.2 NRBC# (test code = NRBC#) 0 K/uL [facility] [Mass/volume] in Serum or Plasma --1 hour post dose [id number] 09:36:00* Test Item Value Reference Range Interpretation Comme nts Results (test code = Results) 174 [facility]Indirect antiglobulin test.unspecified reagent [Presence] in Serum or [id number] 09:19:00* Test Item Value Reference Range Interpretation Comme nts ind ariadne (test code = ind ariadne) negative [facility]inal[facility] macro (dipstick) panel - [id number] 08:38:08* Test Item Value Reference Range Interpretation Comme nts Leukocytes (test code = Leukocytes) Negative Nitrite (test code = Nitrite) negative Urobilinogen (test code = Urobilinogen) .2 Protein (test code = Protein) Negative pH (test code = pH) 7.0 Blood (test code = Blood) Negative Specific [place] (test code = Specific [place]) 1.020 Ketone (test code = Ketone) Negative Bilirubin (test code = Bilirubin) Negative Glucose (test code = Glucose) Negative Appearance (test code = Appearance) Clear Color (test code = Color) Yellow [facility]idianMicroscopic observation [Identifier] in Vaginal fluid by Wet [id number] 10:33:41* Test Item Value Reference Range Interpretation Comme nts Clue Cells (test code = Clue Cells) negative WBCs (test code = WBCs) negative Trichomonads (test code = Trichomonads) negative Epithelial cells (test code = Epithelial cells) normal RBCs (test code = RBCs) negative [facility]inal[facility] macro (dipstick) panel - [id number] 09:58:44* Test Item Value Reference Range Interpretation Comme nts Leukocytes (test code = Leukocytes) Negative Nitrite (test code = Nitrite) negative Urobilinogen (test code = Urobilinogen) .2 Protein (test code = Protein) Negative pH (test code = pH) 7.0 Blood (test code = Blood) Negative Specific [place] (test code = Specific [place]) 1.020 Ketone (test code = Ketone) Negative Bilirubin (test code = Bilirubin) Negative Glucose (test code = Glucose) Negative Appearance (test code = Appearance) Clear Color (test code = Color) Yellow [facility] Grouppregnancy test, [id number] 09:48:42* Test Item Value Reference Range Interpretation Comme [facility] Test (test code = Test) positive [facility] GroupPAP TEST, THINPREP, [id number] 09:25:26* Test Item Value Reference Range Interpretation Comme [facility] SOURCE: (test code = 8001) Cervical/End ocervical SLIDES: (test code = 8011) 1 LMP: (test code = 8021) 10/13/2021 SPECIMEN ADEQUACY: (test code = 89704) (NOTE) Satisfactory for evaluation. Endocervical cells/transformation zone component present. INTERPRETATION: (test code = 56632) LSIL/EPITH. ABNORMALITY; SEE BELOW A -- ---- EPITHELIAL CELL ABNORMALITY Low Grade Squamous Intraepithelial Lesion (LSIL) ---- ADJUNCT ENGLISH INSTRUCTOR: (test code = 8101) CAPRICE Ronquillo(ASCP )[facility] PATHOLOGIST INTERPRETATION BY: (test code = 8122) Bear Byrd M.D. LOCATION: (test code = 14265) (NOTE) Specimens proces sed at [facility], [address] [place] [address], , CLIA: [id number] interpreted at [facility], [address] [place] [address], , CLIA:[id number] CPT: (test code = 8140) (NOTE) 13963, [address] UNL ESS OTHERWISE INDICATED, COMPUTER AIDED AND ADJUNCT ENGLISH INSTRUCTOR SCREENING PERFORMED. The Pap test is a screening test with an inherent, but low probability of error. Your patient should be reminded to consult you immediately if she experiences any suspicious signs or symptoms, regardless of her Pap test result. An alternate report format containing images or consolidated prior Pap history is available as applicable. CT/NG, NAAT, [id number] 18:11:52* Test Item Value Reference Range Interpretation Comme nts GONORRHEA, NAAT (test code = 32361) NEGATIVE NEGATIVE IMPORTANT NO DAVID: SEE ANNOUNCEMENT AT [email or web address] Note: Assay methodology is nucleic acid amplification by ostomy rn mediated amplification (TMA) utilizing the Aptima Combo 2 Assay. CHLAMYDIA, NAAT (test code = 36060) NEGATIVE NEGATIVE IMPORTANT NO DAVID: SEE ANNOUNCEMENT AT [email or web address] Note: Assay methodology is nucleic acid amplification by ostomy rn mediated amplification (TMA) utilizing the Aptima Combo 2 Assay. HPV HIGH RISK WITH GENOTYPE, [id number] 12:44:14* Test Item Value Reference Range Interpretation Comme nts HPV HIGH RISK INTERP (test code = 51272) TEST NOT PERFORMED NEGATIVE QUANTITY OF S PECIMEN INSUFFICIENT FOR TESTING. CHARGES ADJUSTED APPLICABLE. UNLESS OTHERWISE INDICATED, ALL TESTING PERFORMED [facility] [address] [place] [address] POCKET MAKER: VANDA PIPER M.D. CLIA NUMBER [id number] [place]. [id number] VAGINAL PATHOGENS DNA [id number] 12:36:49* Test Item Value Reference Range Interpretation Comme nts ELIZABETH SPECIES (test code = 76221) POSITIVE NEGATIVE A G. VAGINALIS (test code = 15410) POSITIVE NEGATIVE A T. VAGINALIS (test code = 33211) NEGATIVE NEGATIVE HIV 1/2 4TH GEN, RFLX [id number] 05:42:13* Test Item Value Reference Range Interpretation Comme nts HIV 1/2 4TH GEN, RFLX CONF ( test code = 3514) NON-REACTIVE NON-REACTIVE HEPATITIS PANEL, [id number] 05:42:13* Test Item Value Reference Range Interpretation Comme nts HEPATITIS A IgM (test code = 96512) NON-REACTIVE NON-REACTIVE HEPATITIS B CORE IgM (test code = 4644) NON-REACTIVE NON-REACTIVE HEPATITIS B SURF AG (test code = 2739) NON-REACTIVE NON-REACTIVE HEPATITIS C ANTIBODY (test code = 4675) NON-REACTIVE NON-REACTIVE INTERPRETATION HEPATITIS A: (test code = 2552) (NOTE) Hepatitis A serology shows no evidence of acute hepatitis A. INTERPRETATION HEPATITIS B: (test code = 93449) (NOTE) Hepatitis B serology shows no evidence of acute hepatitis B andno indication of exposure to hepatitis B virus in the previous tra eight months. INTERPRETATION HEPATITIS C: (test code = 09496) (NOTE) Hepatitis C serology shows no evidence of exposure to hepatitisC virus at this time. It can take up to 12 months after exposure tothe hepatitis C virus for antibodies to become detectable in the blood in certain patients. [id number] 04:08:32* Test Item Value Reference Range Interpretation Comme nts RPR RESULT (test code = 3501) NON-REACTIVE NON-REACTIVE RPR TITER (test code = 3500) NOT INDIC. TITER NOT INDIC. UNLESS OTHERWISE INDICATED, ALL TESTING PERFORMED [facility] [address] [place] [address] POCKET MAKER: VANDA PIPER M.D. CLIA NUMBER [id number] [facility] [place]. [id number] CBC with [id number] 02:04:59* Test Item Value Reference Range Interpretation Comme nts WBC (test code = 6690-2) See_Comment [Automated ICONOGRAFICOa ge] The system which generated this result transmitted reference range: 4.30 - 11.10 10*3/?L. The reference range was not used to interpret this result as normal/abnormal. RBC (test code = 789-8) See_Comment [Automated ICONOGRAFICOa [employer]] The system which generated this result transmitted reference range: 3.93 - 5.25 10*6/?L. The reference range was not used to interpret this result as normal/abnormal. HGB (test code = 718-7) 12.2 g/dL 11.6-15.0 HCT (test code = 4544-3) 37.9 % 35.7-45.2 MCV (test code = 787-2) 87.1 fL 80.6-95.5 MCH (test code = 785-6) 28.0 pg 25.9-32.8 MCHC (test code = 786-4) 32.2 g/dL 31.6-35.1 RDW-SD (test code = 58692-3) 41.1 fL 39.0-49.9 RDW-CV (test code = 788-0) 13.2 % 12.0-15.5 PLT (test code = 777-3) See_Comment [Acupera] The system which generated this result transmitted reference range: 166 - 358 10*3/?L. The reference range was not used to interpret this result as normal/abnormal. MPV (test code = 85189-0) 10.8 fL 9.5-12.9 NRBC/100 WBC (test code = 1810331347) See_Comment [Automated Webrootge] The system which generated this result transmitted reference range: 0.0 - 10.0 /100 WBCs. The reference range was not used to interpret this result as normal/abnormal. NRBC x10^3 (test code = 8670951033) <0.01 See_Comment [Automated Webrootge] The system which generated this result transmitted reference range: 10*3/?L. The reference range was not used to interpret this result as normal/abnormal. GRAN MAT (NEUT) % (test code = 770-8) 50.8 % IMM GRAN % (test code = 8000803360) 0.40 % LYMPH % (test code = 736-9) 39.5 % MONO % (test code = 5905-5) 6.8 % EOS % (test code = 713-8) 1.8 % BASO % (test code = 706-2) 0.7 % GRAN MAT x10^3(ANC) (test code = 0130885387) 4.17 10*3/uL 1.88-7.09 IMM GRAN x10^3 (test code = 1652706520) 0.03 10*3/uL 0.00-0.06 LYMPH x10^3 (test code = 731-0) 3.25 10*3/uL 1.32-3.29 MONO x10^3 (test code = 742-7) 0.56 10*3/uL 0.33-0.92 EOS x10^3 (test code = 711-2) 0.15 10*3/uL 0.03-0.39 BASO x10^3 (test code = 704-7) 0.06 10*3/uL 0.01-0.07 [facility]21[facility] 01:38:06* Test Item Value Reference Range Interpretation Comme nts APPEARANCE (test code = 4760179771) Hazy Clear A COLOR (test code = 7286842397) Yellow Yellow PH (test code = 7688354835) 4.8-8.0 SP GRAVITY (test code = 8065097860) 1.003-1.030 GLU U QUAL (test code = 3108796311) Normal Normal BLOOD (test code = 9477447017) Negative Negative KETONES (test code = 4526758865) Negative Negative PROTEIN (test code = 2887-8) Negative Negative UROBILIN (test code = 0296129336) Normal Normal BILIRUBIN (test code = 9747102818) Negative Negative NITRITE (test code = 1395970733) Negative Negative LEUK BRAIN (test code = 8257562761) Negative Negative RBC/HPF (test code = 4276034093) See_Comment [Automated ICONOGRAFICOa ge] The system which generated this result transmitted reference range: 0 - 3 HPF. The reference range was not used to interpret this result as normal/abnormal. WBC/HPF (test code = 0849003555) See_Comment [Automated ICONOGRAFICOa ge] The system which generated this result transmitted reference range: 0 - 5 HPF. The reference range was not used to interpret this result as normal/abnormal. BACTERIA (test code = 9494294778) Few Negative A AMORPHOUS (test code = 6981365991) Rare Rare HPF SQ EPITH (test code = 7308636988) [facility] Interpretation (test code = 47506-7) Abnormal [facility] Metabolic [id number] 01:23:09* Test Item Value Reference Range Interpretation Comme nts NA (test code = 8681295853) 137 mmol/L 135-145 K (test code = 0162033625) 3.9 mmol/L 3.5-5.0 CL (test code = 5664269634) 102 mmol/L 98-108 CO2 TOTAL (test code = 6258974625) 24 mmol/L 23-31 AGAP (test code = 2598947413) 2-16 BUN (test code = 8683679569) 13 mg/dL 7-23 GLUCOSE (test code = 5118694461) 89 mg/dL 70-110 CREATININE (test code = 9546594970) 0.52 mg/dL 0.50-1.04 TOTAL BILI (test code = 3326671632) 0.5 mg/dL 0.1-1.1 CALCIUM (test code = 4272183781) 10.0 mg/dL 8.6-10.6 T PROTEIN (test code = 9358075620) 8.5 g/dL 6.3-8.2 H ALBUMIN (test code = 4625709881) 4.9 g/dL 3.5-5.0 ALK PHOS (test code = 6157908007) 59 U/L 34-122 ALTv (test code = 1742-6) 11 U/L 5-35 AST(SGOT) (test code = 2556837480) 18 U/L 13-40 eGFR (test code = 7397497876) mL/min/1.73m2 CRYSTAL (test code = CRYSTAL) Association of [...] or abnormalities in imaging tests). Lab Interpretation (test code = 38319-7) Abnormal [facility] HospitalLipase, [id number] 01:22:48* Test Item Value Reference Range Interpretation Comme [facility] LIPASE (test code = 0187809004) 73 U/L 0-220 Lab Interpretation (test cod e = 04213-2) Normal [facility]PO[facility] [id number] 01:05:00* Test Item Value Reference Range Interpretation Comme nts POCT PREG (test code = 1605) negative On board controls acceptable with C Line (test code = 3574) present POCT PREG LOT # (test code = 3575) [id number] POCT PREG TEST DATE ( test code = 3576) 09/26/2022 Lab Interpretation (test cod e = 13102-6) Normal [facility]"
[2024-12-11 06:15] LABS: Specific Gravity 1.005 (1.005-1.030)
[2024-12-11 06:21] LABS: Absolute Basophils 0.1 K/uL (0-0.5); Absolute Eosinophils 0.1 K/uL (0-0.5); Absolute Lymphocytes (CBC) 1.6 K/uL (0.7-4.9); Absolute Monocytes 0.5 K/uL (0.1-1.3); Absolute Neutrophil 4.2 K/uL (1.8-8.0); Basophils % 0.9 % (0-1.3); Eosinophils % 1.3 % (0-4.4); Hematocrit 39.5 % (36.0-45.0); Lymphocytes % 24.9 % (15.3-44.8); MCH 28.5 pg (27.0-35.0); MCV 86.5 fL (80-100); MPV 8.6 fL (7.6-11.3); Monocytes % 7.7 % (3.3-12.3); Neutrophils % 65.2 % (41.7-73.7); Nucleated Red Blood Cells % 0.1 % (0-0); Platelets 295 thou/uL (152-406); RBC Red Blood Cell Count 4.56 M/uL (3.86-4.86); Red Cell Distribution Width 13.5 % (12.1-15.2)
[2024-12-11 06:31] LABS: Anion Gap 13.3 mEq/L (5.0-15.0); BUN Blood Urea Nitrogen 10 mg/dL (7-18); Bicarbonate 25 mEq/L (21-32); Glomerular Filtration Rate 129 ml/min (=/>90); Glucose Level 84 mg/dL (74-106); Potassium 3.3 mEq/L (3.5-5.1); Sodium Level 134 mEq/L (136-145)
[2024-12-11 06:36] LABS: Troponin High Sensitivity < 3.0 pg/mL (<58.9)
--- NOTE | 2024-12-11 06:37 | RAD REPORT ---
EXAM DESCRIPTION: Chest Single View CLINICAL HISTORY: CHEST PAIN COMPARISON: None TECHNIQUE: Single AP view of the chest. FINDINGS: Lung volumes adequate. Cardiac silhouette is normal in size. No pneumothorax. No large pleural effusion. No focal consolidation. No acute bony finding. IMPRESSION: No evidence of acute cardiopulmonary disease. Electronically signed by: Pratibha Rudd MD 12/11/2024 06:31 AM CDT RP TYG Due to temporary technical issues with the PACS/ChorPpay reporting system, reports are being yesenia d by the in-house radiologist without review as a courtesy to ensure prompt reporting the interpreting radiologist is fully responsible for the content of the report. Transcribed Date/Time: 12/11/2024 6:36 AM
--- NOTE | 2024-12-11 06:39 | EDPHYS ---
Physician Documentation [facility] Name: Tamar Arzola Age: 34 yrs Sex: Female : 1990 Arrival Date: 12/11/2024 Time: 05:43 Bed 5 Private MD: ED Physician Linwood Emanuel HPI: 12/11 05:47 This 34 yrs old Female presents to ER via Unassigned with complaints of Chest ec2 Pain. 05:47 Patient arrives today for evaluation of approx 2w of chest pain. reports that the pain ec2 is left sided, under the breast, worse with movement. no significant medical problems.. 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 - Infectious Disease History:: Denies. - Social history:: Smoking status: Patient reports the use of cigarette tobacco products, denies chronic smoking, but will smoke occasionally, Reported history of juuling and/or vaping. ROS: 05:49 Constitutional: as per hpi ec2 Exam: 05:49 Constitutional: GEN: NAD Head: atraumatic Eyes: EOMI Ears: External ears are ec2 normal. CV: regular rate LUNGS: no respiratory distress ABD: non-distended SKIN: no evidence of rashes MSK: no evidence of trauma, reproducible chest wall TTP Vital Signs: 05:54 BP 129 / 86; Pulse 88; Resp 16; Temp 98.2(O); Pulse Ox 98% on R/A; Weight 74.84 kg; dd2 Pain 6/10; 06:45 BP 112 / 72; Pulse 86; Resp 15; Pulse Ox 100% ; dd2 05:54 Pain Scale: Adult dd2 Reynolds Coma Score: 06:03 Eye Response: spontaneous(4). Motor Response: obeys commands(6). Verbal Response: dd2 oriented(5). Total: 15. MDM: 05:44 Medical Screening Exam initiated ec2 05:50 Data reviewed: vital signs, nurses notes. ED course: Patient arrives today for ec2 evaluation left-sided chest pain. Examination is revealing for nontoxic individual was otherwise in no acute distress with a reassuring cardiopulmonary examination. Will obtain a cardiac workup. DDx considered include processes such as costochondritis, ACS, PE. . 05:58 ED course: EKG independently reviewed and interpreted by me, shows normal sinus rhythm, ec2 rate of 83, no acute ST segment elevations, intervals are nonactionable.. 06:39 ED course: Metabolic profile shows slight hypokalemia. CBC reassuring, troponin is ec2 undetectable. Chest x-ray shows no acute intrathoracic process. Given the patient's duration of symptoms, will forego repeat EKG and troponin. Will discharge home, suspect costochondritis. Return precautions given.. 03 05:46 Order name: Basic Metabolic Panel; Complete Time: 06:39 ec2 12/11 05:46 Order name: CBC with Diff; Complete Time: 06:39 ec2 12/11 05:46 Order name: Troponin HS; Complete Time: 06:39 ec2 12/11 05:46 Order name: Test, Urine; Complete Time: 06:28 ec2 12/11 05:46 Order name: XRAY Chest (1 view); Complete Time: 06:39 ec2 12/11 05:46 Order name: EKG; Complete Time: 05:47 ec2 12/11 05:46 Order name: Cardiac monitoring; Complete Time: 06:00 ec2 12/11 05:46 Order name: EKG - Nurse/Tech; Complete Time: 06:00 ec2 12/11 05:46 Order name: IV Saline Lock; Complete Time: 06:00 ec2 12/11 05:46 Order name: Labs collected and sent; Complete Time: 06:00 ec2 12/11 05:46 Order name: O2 Per Protocol; Complete Time: 06:00 ec2 12/11 05:46 Order name: O2 Sat Monitoring; Complete Time: 06:00 ec2 Administered Medications: No medications were administered Disposition Summary: 12/11/24 06:39 Discharge Ordered Notes: Location: Home ec2 Condition: Stable ec2 Diagnosis - Costochondritis ec2 Followup: ec2 - With: Private Physician - When: - Reason: Re-evaluation by your physician Discharge Instructions: - Discharge Summary Sheet ec2 - Costochondritis, [id number] ec2 Forms: - Work release form bd - Medication Reconciliation Form ec2 - Antibiotic Education ec2 - Prescription Opioid Use ec2 - Patient Portal Instructions ec2 - Leadership Thank You Letter ec2 Prescriptions: - methocarbamol 500 mg Oral tablet - take 1 tablet ORAL route 4 times per day; 20 tablet; Refills: 0, Product ec2 Selection Permitted Signatures: Dispatcher [employer] EDLinwood Cedeño MD MD ec2 KAYLEIGH MYERS RN RN dd2 Corrections: (The following items were deleted from the chart) 06:05 05:49 Constitutional: GEN: NAD Head: atraumatic Eyes: EOMI Ears: External ears are ec2 normal. CV: regular rate LUNGS: no respiratory distress ABD: non-distended SKIN: no evidence of rashes MSK: no evidence of trauma ec2
--- NOTE | 2024-12-11 06:39 | ER ---
Nurse's Notes [facility] Name: Tamar Arzola Age: 34 yrs Sex: Female : 1990 Arrival Date: 12/11/2024 Time: 05:43 Bed 5 Private MD: Diagnosis: Costochondritis Presentation: 12/11 05:54 Chief complaint: EMS states: TONED OUT FOR CHEST PAIN. PT REPORTS CHEST PAIN SINCE dd2 11/29/2024 AFTER TAKING THE PLAN B PILL. PT REPORTS MID CHEST PAIN THAT RADIATES UNDER LEFT BREAST, NUMBNESS AND TINGLING TO HANDS AND SPASMS TO HANDS. Coronavirus screen: At this time, the client does not indicate any symptoms associated with coronavirus-19. Ebola Screen: No symptoms or risks identified at this time. Initial Sepsis Screen: Does the patient meet any 2 criteria? No. Patient's initial sepsis screen is negative. Does the patient have a suspected source of infection? No. Patient's initial sepsis screen is negative. Risk Assessment: Do you want to hurt yourself or someone else? Patient reports no desire to harm self or others. Onset of symptoms was November 29, 2024. Care prior to arrival: Medication(s) given: ASA, 325 mg, Glucose check: 108. 05:54 Method Of Arrival: [facility] dd2 05:54 Acuity: JANAY 3 dd2 Triage Assessment: 05:59 General: Appears in no apparent distress. Behavior is calm, cooperative, appropriate dd2 for age. Pain: Complains of pain in mid-sternal area Pain radiates to diaphragm Pain currently is 6 out of 10 on a pain scale. EENT: No deficits noted. No signs and/or symptoms were reported regarding the EENT system. Neuro: Guevara Agitation-Sedation Scale (RASS): 0 - Alert and Calm Level of Consciousness is awake, alert, obeys commands, Oriented to person, place, time, situation, Appropriate for age Tingling in right hand and left hand Numbness in right hand and left hand. Cardiovascular: Reports chest pain, Heart tones S1 S2 present Capillary refill < 3 seconds JVD is absent Patient's skin is warm and dry. Rhythm is sinus rhythm. Respiratory: Reports pain with respiration Airway is patent Respiratory effort is even, unlabored, Respiratory pattern is regular, symmetrical, Breath sounds are clear bilaterally. GI: No deficits noted. No signs and/or symptoms were reported involving the gastrointestinal system. Abdomen is non-distended, Abd is soft and non tender X 4 quads. : No deficits noted. No signs and/or symptoms were reported regarding the genitourinary system. Derm: No deficits noted. No signs and/or symptoms reported regarding the dermatologic system. Musculoskeletal: Circulation, motion, and sensation intact. Range of motion: intact in all extremities, Reports numbness in right hand and left hand. [employer]: 06:45 LMP N/A - control method, Not dd2 06:45 unknown [id number] Historical: - Allergies: 05:59 No Known Allergies; dd2 - Home Meds: 05:59 None [Active]; dd2 - PMHx: 05:59 None; dd2 - PSHx: 05:59 section; dd2 - Immunization history:: Adult Immunizations unknown. - Infectious Disease History:: Denies. - Social history:: Smoking status: Patient reports the use of cigarette tobacco products, denies chronic smoking, but will smoke occasionally, Reported history of juuling and/or vaping. Screenin:03 [facility] ED Fall Risk Assessment (Adult) History of falling in the last 3 months, dd2 including since admission No falls in past 3 months (0 pts) Confusion or Disorientation No (0 pts) Intoxicated or Sedated No (0 pts) Impaired Gait No (0 pts) Mobility Assist Device Used No (0 pt) Altered Elimination No (0 pt) Score/Fall Risk Level 0 - 2 = Low Risk Oriented to surroundings, Maintained a safe environment, Educated pt \T\ family on fall prevention, incl call for assistance when getting out of bed, Assessed \T\ reinforced patient's understanding of fall precautions, Hourly rounding (assess needs \T\ fall precautionary measures) done. Abuse screen: Denies threats or abuse. Denies injuries from another. Nutritional screening: No deficits noted. Tuberculosis screening: No symptoms or risk factors identified. Assessment: 06:03 Reassessment: SEE TRIAGE ASSESSMENT FOR FULL ASSEESSMENT. dd2 06:03 Pain: Pain began 11/29/2024. dd2 Vital Signs: 05:54 BP 129 / 86; Pulse 88; Resp 16; Temp 98.2(O); Pulse Ox 98% on R/A; Weight 74.84 kg; dd2 Pain 6/10; 06:45 BP 112 / 72; Pulse 86; Resp 15; Pulse Ox 100% ; dd2 05:54 Pain Scale: Adult dd2 Liliana Coma Score: 06:03 Eye Response: spontaneous(4). Motor Response: obeys commands(6). Verbal Response: dd2 oriented(5). Total: 15. ED Course: 05:44 Patient arrived in ED. [id number] 05:44 Linwood Emanuel MD is Attending Physician. ec2 05:59 Triage completed. dd2 05:59 Arm band placed on right wrist. dd2 06:00 Troponin HS Sent. vk 06:00 CBC with Diff Sent. vk 06:00 Basic Metabolic Panel Sent. vk 06:00 EKG done, by ED staff. vk 06:00 Initial lab(s) drawn, by ED staff, sent to lab. vk 06:03 No provider procedures requiring assistance completed. Inserted saline lock: 20 gauge dd2 in right antecubital area, using aseptic technique. Blood collected. Flushed with 10 mL NS. Patient maintains SpO2 saturation greater than 95% on room air. 06:03 Patient has correct armband on for positive identification. Placed in gown. Bed in low dd2 position. Call light in reach. Side rails up X2. Client placed on continuous cardiac and pulse oximetry monitoring. NIBP monitoring applied. equipment monitor phototypesetting on. Door closed. Noise minimized. Warm blanket given. Pillow given. 06:05 XRAY Chest (1 view) In Process Unspecified. EDMS 06:45 KAYLEIGH MYERS, RN is Primary Nurse. dd2 06:46 IV discontinued, intact, bleeding controlled, No redness/swelling at site. Pressure dd2 dressing applied. 06:49 Provided Education on: D/C EDUCATION. dd2 Administered Medications: No medications were administered Medication: 06:03 VIS not applicable for this client. dd2 Outcome: 06:39 Discharge ordered by . ec2 06:46 Discharged to home ambulatory, dd2 06:46 Condition: stable 06:46 Discharge instructions given to patient, Instructed on discharge instructions, follow up and referral plans. Demonstrated understanding of instructions, follow-up care, medications, 06:49 Prescriptions given X 1, dd2 06:50 Patient left the ED. dd2 Signatures: Dispatcher [employer] EDUT Amy Smith [email or web address] Linwood Emanuel MD MD ec2 Manasa Blackman Brad RN RN [id number] KAYLEIGH MYERS RN RN dd2
[2024-12-11 06:54] VITALS: TEMP 98.2
[2024-12-11 06:55] VITALS: BP 112/72; O2SAT 100
--- NOTE | 2024-12-13 12:40 | EKG ---
Test Date: 2024-12-11 Test Time: 05:55:26 [employer] Manager: NELA MEASUREMENT RESULTS: Intervals: Rate: 83 WV: 138 QRSD: 100 QT: 404 QTc: 474 [place]: P: 41 WV: 138 QRS: 57 T: 60 INTERPRETIVE STATEMENTS: Normal sinus rhythm with sinus arrhythmia Normal ECG Compared to ECG 07/08/2020 18:22:14 Incomplete right bundle-branch block no longer present Electronically Signed On 12-13-24 12:29:30 CDT by Anjum Peoples
== END 2024-12-11 06:50 | disposition home or self-care (01) ==
LOC: ER 05:43
DX: M94.0 Chondrocostal junction syndrome [Tietze] (principal); F17.210 Nicotine dependence, cigarettes, uncomplicated
CPT/HCPCS: 36415; 71045; 80048; 81025; 84484; 85025; 93005; 99284